=== PATIENT | male | born 1945 | race Caucasian/White ===

== ENCOUNTER 2023-02-18 10:35 | Outpatient (CLI) | payer MEDICARE, BC, SELFPAY ==
--- NOTE | ~2023-02-18 | CT_ITS ---
EXAMINATION: CT BRAIN W/O DATE: 02/18/2023 11:17 INDICATION: TECHNIQUE: Computed tomography (CT) of the head and sinuses was performed without and with 100 cc Omn ipaque 350 intravenous contrast. The dose-length product was 1286.33 mGy-cm. Automated exposure contr ol and iterative reconstruction technique were employed. COMPARISON: No prior studies for comparison. FINDINGS: Generalized atrophy. There are scattered moderate periventricular and subcortical white mat ter changes, most likely related to small vessel ischemic disease (microangiopathy). No abnormal cont rast enhancement. No ventriculomegaly or midline shift. Midline sagittal images demonstrate a normal corpus callosum, c raniovertebral junction and sella turcica. Basilar cisterns are patent. There is a small mucous retention cyst of the right maxillary sinus. Leftward nasal septal deviation. No significant mucosal thickening or air-fluid level. No mucoperiosteal reaction. Mastoids are pneum atized. Ostiomeatal units are patent. Mild hypertrophy of the right inferior turbinate. IMPRESSION: 1. No acute intracranial abnormality. 2: Small mucous retention cyst right maxillary sinus. 3: Chronic age-related findings. Reviewed, dictated and finalized at location []
[2023-02-18 11:06] LABS: Estimated Glomerular Filt Rate 37
== END 2023-02-18 10:36 | disposition home or self-care (01) ==
PROVIDERS: PCP Internal Medicine; Visit Provider Otolaryngology
DX: H90.3 Sensorineural hearing loss, bilateral (principal); H93.19 Tinnitus, unspecified ear; Q01.9 Encephalocele, unspecified; R43.9 Unspecified disturbances of smell and taste; J34.3 Hypertrophy of nasal turbinates
CPT/HCPCS: 70470; 70486

== ENCOUNTER 2023-03-02 08:58 | Outpatient (CLI) | payer MEDICARE, BC, SELFPAY | END 2023-03-02 08:59 | disposition home or self-care (01) | LOC: ANHBWCAUD 09:01 | PROVIDERS: PCP Internal Medicine; Visit Provider Otolaryngology | DX: R43.8 Other disturbances of smell and taste (principal); Q01.9 Encephalocele, unspecified; H93.19 Tinnitus, unspecified ear; H90.3 Sensorineural hearing loss, bilateral | CPT/HCPCS: 92557; 92567 ==

== ENCOUNTER 2025-03-17 13:18 | Emergency (ER) | payer MEDICARE, BC, SELFPAY ==
--- OUTSIDE RECORDS SUMMARY | 2025-03-17 13:20 | XMS_ITS | Clinical Summary ---
Author Organization [facility] Facility Address [address] [place] [id number] Care Team Providers Care Company Accountant Name Role Phone Nitesh Jules MD Primary Care Provider [phone] Allergies No known active allergies Medications Umeclidinium-Zulema anterol (Anoro Ellipta) 62.5-25 MCG/ACT aerosol powder INHALE 1 PUFF EVERY DAY 3 Active sertraline (ZOLOFT) 25 MG tablet Take 50 mg by mouth 1 (one) time each day 4 Active memantine (NAMENDA) 10 MG tablet Take 1 tablet by mouth in the morning and 1 tablet in the evening. 3 Active meclizine (ANTIVERT) 25 MG tablet Take 25 mg by mouth 3 (three) times a day if needed for dizziness 4 Active Magnesium 100 MG tablet Take 500 mg by mouth 1 (one) time each day Active lovastatin (MEVACOR) 20 MG tablet Take 20 mg by mouth 1 (one) time each day 3 Active Lecanemab-irmb (Leqembi) 200 MG/2ML solution 1 Dose every 14 (fourteen) days 3 Active Donepezil HCl 10 MG/DAY patch weekly Active Cobalamin Combinations (B-12) 100-5000 MCG sublingual tablet Take 1 tablet by mouth 1 (one) time each day Active tamsulosin (FLOMAX) 0.4 MG 24 hr capsule TAKE 1 CAPSULE BY MOUTH 1 TIME EACH DAY. 90 capsule 1 4 Active Additional Information Patient not taking.Reported on 10/29/2024 finasteride (PROSCAR) 5 MG tablet Take 5 mg by mouth in the morning. 4 07/24/20 25 Active hydrOXYzine (ATARAX) 25 MG tablet Take 25 mg by mouth if needed 5 Active fludrocortisone 0.1 MG tablet Take 0.1 mg by mouth 1 (one) time each day Active Active Problems Problem Noted Date Diagnosed Date Mixed hyperlipidemia 11/18/2023 Stage 3a chronic kidney disease 09/13/2023 Panlobular emphysema 01/19/2023 Allergic rhinitis due to pollen 12/18/2021 Impaired cognition 11/28/2020 Diabetic peripheral neuropathy 05/30/2020 Type 2 diabetes mellitus without complication Essential hypertension 08/29/2017 Encounters Date Type Department Care Team Description 03/04/2025 Orders Only [facility], [address] [address] [place] Essential hypertension (Primary Dx) from Last 3 Months Immunizations Immunization Administration Dates Next Due DTaP 05/09/2013 Influenza Split High Dose Pr eservative Free IM 05/22/2022,05/20/2017,05/26/2016,05/15 Influenza Vaccine, Quadrival ent, Adjuvanted 06/13/2023 Moderna SARS-COV-2 06/19/2021,11/11/2020, 021 Pneumococcal Conjugate 13-Valent 05/16/2015 Pneumococcal Polysaccharide 05/17/2014 Shingrix 06/29/2018,04/24/2018 Zoster 05/28/2011 Family History Medical History Relation Comments Dementia Father Relation Status Comments Father Mother Social History Tobacco Use Types Packs/Day Years Used Date Smoking Tobacco: Former Cigarettes Smokeless Tobacco: Never Tobacco Cessation:Counseling Given: Not Answered Alcohol Use Standard Drinks/Week Comments Not Currently 0 (1 standard drink = 0.6 oz pur e alcohol) Sex and Gender Information Value Date Recorded Sex Assigned at Not on file Legal Sex Male 10:14 AM EST Gender Identity Not on file Sexual Orientation Not on file Last Filed Vital Signs Vital Sign Reading Time Taken Comments Blood Pressure 132/70 10/29/2024 1:38 PM PHYSICAL THERAPY COORDINATOR Pulse 63 10/29/2024 1:38 PM PHYSICAL THERAPY COORDINATOR Temperature 36.7 C (98 F) 10/29/2024 1:38 PM PHYSICAL THERAPY COORDINATOR Respiratory Rate 16 10/29/2024 1:38 PM PHYSICAL THERAPY COORDINATOR Oxygen Saturation 98% 10/29/2024 1:38 PM PHYSICAL THERAPY COORDINATOR Inhaled Oxygen Concentration - - Weight 103 kg (226 lb) 10/29/2024 1:38 PM PHYSICAL THERAPY COORDINATOR Height 188 cm (6' 2) 04/23/2024 2:01 PM CDT Body Mass Index 29.02 04/23/2024 2:01 PM CDT Plan of Treatment Upcoming Encounters Date Type Department Care Team (Late st Contact Info) Description 05/01/2025 1:15 PM CDT Office Visit [facility], [facility] [address] [facility] [address] [place] [address] August Gant MD 2 [facility] [address] [place] [address] Health Maintenance Due Date Last Done Comments Diabetes: Ophthalmology Exam 10/07/2023 Diabetes: Pedal Pulse Checked 10/07/2023 Diabetes: Sensory Foot Exam 10/07/2023 Diabetes: Visual Foot Exam 10/07/2023 Diabetes: Hemoglobin A1C 12/12/2023 024, 09/12/2023, 03/08/2023, Additional history exists Influenza Vaccine (#1) 2025 4, 06/13/2023, 05/22/2022, Additional history exists Pneumococcal Vaccine: 50+ Years Completed 05/16/2015, 05/17/2014, 04/29/2014 Hepatitis B Vaccine Aged Out No longe r eligible based on patient's age to complete this topic Procedures Procedure Name Priority Date/Time Associated Diagnosis Comments EXT RESULT ENTRY Routine 09/12/2023 from Last 3 Months or Most Recently Relevant to Health Maintenance Results * (ABNORMAL) EXT RESULT ENTRY (09/12/2023) Sodium 139 137 - 147 Potassium 4.4 3.4 - 5.5 Chloride 105.0 99.0 - 108.0 Carbon Dioxide 28 mmol/L Anion Gap 10 <=30 MMOL/L Glucose 121 60 - 200 BUN 22(A) 4 - 21 mg/dL Creatinine 1.64(A) 0.60 - 1.30 mg/dL Total Protein 6.3(A) 6.4 - 8.2 G/DL BUN/Creatinine Ratio 13 Albumin 3.8 3.5 - 5.0 g/dL Calcium 8.9 8.7 - 10.7 mg/dL eGFR CKD-EPI CR 2020 42 mL/min/1. 73m*2 Total Bilirubin 0.6 MG/DL ALT (SGPT) 17 U/L AST (SGOT) 16 U/L Alkaline Phosphatase 72 U/L Hemoglobin A1C 5.6 4.0 - 6.0 Triglycerides 192 Cholesterol, Total 165 HDL 35 mg/dL VLDL Cholesterol [place] 38 LDL-Calculated 92 Chol/HDL Ratio (External Entry) 4.7 Non HDL Cholesterol 130 Hep C Antibody w/reflex to Quant (External Lab Entry) 0.09 09/12/2023 Historical Provider LAB BLOOD ORDERABLES Salud mittal Result from Last 3 Months or Most Recently Relevant to Health Maintenance Insurance Medicare [facility] Care Teams Company Accountant Relationship Specialty Start Date End Date Nitesh Jules [place] [address] [place] [address] PCP - General Family Medicine 10/29/24
--- OUTSIDE RECORDS SUMMARY | 2025-03-17 13:20 | XMS_ITS | Encounter Summary ---
Author Organization [facility] Address [address] [place] [address] Phone Care Team Providers Care Concrete Grinder Operator Name Role Phone Alo Carrasquillo MD Primary Care Provider [phone] Jama Tinajero MD Unavailable [phone] Ermias Greene MD Unavailable [phone] August Gant MD Unavailable [phone] Nitesh Jules MD Primary Care Provider [phone] Reason for Visit * Reason Comments Medication Refill Encounter Details Date Type Department Care Team (Late st Contact Info) Description 05/17/2021 Refill [facility] - Primary Care - [place] [address] [place] [address] Alo Carrasquillo MD [address] [place], [place] [id number] Medication Refill Social History Tobacco Use Types Packs/Day Years Used Date Smoking Tobacco: Former Cigarettes 2 20 Smokeless Tobacco: Never Alcohol Use Standard Drinks/Week Comments Yes 0 (1 standard drink = 0.6 oz pur e alcohol) 2 drinks per week PHQ-2 Answer Date Recorded Total Score - Questions 1-9 0 08/0 11/2020 Sexually Active Control Partners Comments Yes Female Sex and Gender Information Value Date Recorded Sex Assigned at Not on file Legal Sex Male 7:47 PM CDT Gender Identity Not on file Sexual Orientation Not on file documented as of this encounter Plan of Treatment Upcoming Encounters Date Type Department Care Team (Late st Contact Info) Description 03/29/2025 1:30 PM CDT Clinical Support [facility] Oncology [facility] [address] [place] [address] Esdras Davila MD [address] [place] [address] Jama Tinajero MD [address] [place] [address] 04/01/2025 1:00 PM CDT Office Visit [facility] - Neurology [facility] [address] [place] [address] Jama Tinajero MD [address] [place] [address] 04/12/2025 1:30 PM CDT Clinical Support [facility]cology [facility] [address] [place] [address] Discharge Disposition: Discharged to home or Selfcare 04/26/2025 1:30 PM CDT Clinical Support [facility] [address] [place] [phone] Discharge Disposition: Discharged to home or Selfcare 05/10/2025 1:00 PM CDT Clinical Support [facility] [address] [place] [phone] Discharge Disposition: Discharged to home or Selfcare documented as of this encounter Visit Diagnoses Diagnosis Mild cognitive impairment Mild cognitive impairment, so stated documented in this encounter Additional Health Concerns Assessment Noted Time PHQ-9 Depression Total Score: 0 04/01/20 21 1:00 PM CDT documented as of this encounter Care Teams Concrete Grinder Operator Relationship Specialty Start Date End Date Alo Carrasquillo MD [address] [place] [address] PCP - General Internal Medicine 05/20/15 10/30/24 Nitesh Jules MD [address] [place] [address] PCP - General Internal Medicine 11/02/24 Jama Tinajero MD [address] [place] [address] Consulting Physician Neurology 11/28/20 Ermias Greene MD [address] [address] Consulting Physician Otolaryngology 03/08/23 August Gant MD [address] [place] [address] Consulting Physician Nephrology 04/12/24 documented as of this encounter
--- OUTSIDE RECORDS SUMMARY | 2025-03-17 13:20 | XMS_ITS | Encounter Summary ---
Author Organization [facility] Address [address] [place] [address] Phone Care Team Providers Care Legal Examiner Name Role Phone Alo Carrasquillo MD Primary Care Provider [phone] Jama Tinajero MD Unavailable [phone] Ermias Greene MD Unavailable [phone] August Gant MD Unavailable Nitesh Jules MD Primary Care Provider [phone] Reason for Visit * Reason Comments Medication Refill Encounter Details Date Type Department Care Team (Late st Contact Info) Description 03/01/2022 Refill [facility] - Primary Care - [place] [address] [place] [address] Alo Carrasquillo MD [address] [place], [place] [id number] Medication Refill Social History Tobacco Use Types Packs/Day Years Used Date Smoking Tobacco: Former Cigarettes 2 20 Smokeless Tobacco: Never Alcohol Use Standard Drinks/Week Comments Yes 0 (1 standard drink = 0.6 oz pur e alcohol) 2 drinks per week PHQ-2 Answer Date Recorded Total Score - Questions 1-9 0 11/28 Education Answer Date Recorded What is the highest level of school you have completed or the highest degree you have received? Associate degree: occupational, technical, or vocational program 06/19/2021 Sexually Active Control Partners Comments Yes Female Sex and Gender Information Value Date Recorded Sex Assigned at Not on file Legal Sex Male 7:47 PM CDT Gender Identity Not on file Sexual Orientation Not on file COVID-19 Exposure Response Date Recorded In the last 10 days, have yo u been in contact with someone who was confirmed or suspected to have Coronavirus/COVID-19? No / Unsure 02/01/2022 11:06 AM CDT documented as of this encounter Plan of Treatment Upcoming Encounters Date Type Department Care Team (Late st Contact Info) Description 03/29/2025 1:30 PM CDT Clinical Support [facility] On[facility] Services [address] [place] [phone] Esdras Davila MD [address] [place] [address] Jama Tinajero MD [address] [place] [address] 04/01/2025 1:00 PM CDT Office Visit [facility] - Neurology [facility] [address] [place] [address] Jama Tinajero MD [address] [place] [address] 04/12/2025 1:30 PM CDT Clinical Support [facility] [address] [place] [phone] Discharge Disposition: Discharged to home or Selfcare 04/26/2025 1:30 PM CDT Clinical Support [facility] [address] [place] [address] Discharge Disposition: Discharged to home or Selfcare 05/10/2025 1:00 PM CDT Clinical Support [facility] Services [address] [place] [phone] Discharge Disposition: Discharged to home or Selfcare documented as of this encounter Visit Diagnoses Not on filedocumented in this encounter Additional Health Concerns Assessment Noted Time PHQ-9 Depression Total Score: 0 04/01/20 1:00 PM CDT documented as of this encounter Care Teams Legal Examiner Relationship Specialty Start Date End Date Alo Carrasquillo MD [address] [place] [address] PCP - General Internal Medicine 05/20/15 10/30/24 Nitesh Jules MD [address] [place] [address] PCP - General Internal Medicine 11/02/24 Jama Tinajero MD [address] [place] [address] Consulting Physician Neurology 11/28/20 Ermias Greene MD [address] [facility] [address] [place] [address] Consulting Physician Otolaryngology 03/08/23 August Gant MD 2 [facility], [address] [address] Consulting Physician Nephrology 04/12/24 documented as of this encounter
--- OUTSIDE RECORDS SUMMARY | 2025-03-17 13:20 | XMS_ITS | Clinical Summary ---
Author Organization [facility] CALL [facility] ENTER Address [address] [place] [address] Phone Care Team Providers Care Director Of Sales Name Role Phone Jama Tinajero MD Unavailable [phone] Ermias Greene MD Unavailable [phone] August Gant MD Unavailable [phone] Nitesh Jules MD Primary Care Provider [phone] Allergies No known active allergies Medications Cyanocobalamin (VITAMIN B-12 PO) Take by mouth. Active MAGNESIUM PO Take by mouth. Ac tive lovastatin (MEVACOR) 20 MG TabletIndications :Mixed hyperlipidemia TAKE 1 TABLET BY MOUTH EVERY DAY 90 Tablet 2 024 Active Chelated Magnesium 100 MG Tablet Take 100 mg by mouth. Active memantine (NAMENDA) 10 MG TabletIndications :Mild cognitive impairment TAKE 1 TABLET BY MOUTH TWICE A DAY 180 Tablet 5 024 Active QUEtiapine (SEROquel) 25 MG TabletIndications :Alzheimer's disease,Anxiety Take 1 Tablet by mouth daily as needed (agitation). 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 10 mL 6 025 Active hydrOXYzine (ATARAX) 25 MG Tablet TAKE 1 TABLET BY MOUTH EVERY 6 HOURS NEEDED FOR ANXIETY 15 Tablet 025 Active hydrOXYzine (ATARAX) 25 MG Tablet Take 1 Tablet by mouth every 6 hours as needed for Anxiety. 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 03/08/2023 Panlobular emphysema 01/19/2023 Seasonal allergic rhinitis due to pollen 022 Mild cognitive impairment 11/28/2020 Diabetic peripheral neuropathy 05/30/2020 Type 2 diabetes mellitus wit hout complication, without long-term current use of insulin 05/30/2019 Hypertension, essential 08/29/2017 Mixed hyperlipidemia Resolved Problems Problem Noted Date Diagnosed Date Resolved Date Screen for colon cancer 05/20/201704/30 SOB (shortness of breath) 06/09/2016 Non morbid obesity due to excess calories 06/09/2016 05/19/2017 Encounters Date Type Department Care Team Description 03/15/2025 1:30 PM CDT Clinical Support [facility] Oncology Services [address] [place] [phone] Jama Tinajero MD Alzheimer's disease (Primary Dx); Mild cognitive impairment; 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 behavioral disturbance, psychotic disturbance, mood disturbance, or anxiety (HCC) Discharge Disposition: Discharged to home or Selfcare 03/15/2025 Travel 03/09/2025 Refill [facility] Neurology [facility] [address] [place] [address] Jama Tinajero MD Medication Refill 02/28/2025 2:00 PM CDT Clinical Support [facility] Oncology Services [address] [place] [address] Esdras Davila MD Sherwood, Karna D, MD Mild cognitive impairment Discharge Disposition: Discharged to home or Selfcare 02/28/2025 Travel 02/05/2025 1:00 PM CDT Clinical Support [facility] Oncology Services [address] [place] [phone] Jama Tinajero MD Alzheimer's disease (Primary Dx); Mild cognitive impairment Discharge Disposition: Discharged to home or Selfcare 02/05/2025 Travel 02/05/2025 Telephone [facility] Neurology [facility] [address] [place] [address] Jama Tinajero MD 01/18/2025 1:30 PM CDT Clinical Support [facility] Oncology Services [address] [place] [phone] Jama Tinajero MD Mild cognitive impairment Discharge Disposition: Discharged to home or Selfcare 01/18/2025 Travel 12/28/2024 1:00 PM CDT Clinical Support [facility] Oncology Services [address] [place] [phone] Marah Guevara PAC Sandhu, Manpreet Kaur, MD Mild cognitive impairment Discharge Disposition: Discharged to home or Selfcare 12/28/2024 Travel 12/21/2024 Refill [facility] [place] [address] [place] [phone] Jama Tinajero MD Medication Refill 12/21/2024 Refill [facility] - Primary [facility] - [address] [phone] Alo Carrasquillo MD Medication Refill from Last 3 Months Immunizations Immunization Administration Dates Next Due Covid-19, Mrna, Lnp-s, Bival ent, Moderna, 50 Mcg or 25 mcg dose 07/12/2022 Covid-19, Mrna, Lnp-s, PF, 1 00 mcg/0.5 mL Dose (Moderna) 06/19/2021,11/11/2020,10/01/2020 DTAP VACCINE 05/09/2013 Influenza Vaccine greater than 3 yrs 03/2020,06/04/2019,05/23/2018,2013 Influenza, High-dose, Quadrivalent 05/21/2022, Influenza, Quadrivalent, Adjuvanted 06/13/2023 Influenza, high-dose, trivalent, PF 04/30,05/20/2017,05/26/2016,2014 Pneumococcal Vaccine - 13 Valent 05/16/2015 Pneumococcal Vaccine Adult - 23 Valent 05/17/2014 RSV, Recombinant, Protein Holder bunit Rsvpref, Adjuvant Recon (Arexvy) 04/26/2024 Zoster Vaccine Recombinant 06/29/2018,04/24/2018 Zoster Vaccine, live 05/28/2011 Family History Medical History Relation Name Comments No Known Problems Brother Alzheimer's Disease Father Stroke Father ?? No Known Problems Mother No Known Problems Sister Relation Name Status Comments Brother Alive Father Mother Sister Alive Social History Tobacco Use Types Packs/Day Years Used Date Smoking Tobacco: Former Cigarettes 2 43 0 1958 - 1977 Smokeless Tobacco: Never Tobacco Cessation:Counseling Given: Not Answered Alcohol Use Standard Drinks/Week Comments Not Currently 2 (1 standard drink = 0.6 oz pur e alcohol) 2 drinks per week [facility] Utilities Answer Date Recorded In the past 12 months has [employer], gas, oil, or water company threatened to shut off services in your home? No 04/12/2024 Social Connection and Isolation Panel Answer Date Recorded In a typical week, how many times do you talk on the phone with family, friends, or neighbors? Patient declined 04/12/2024 How often do you get togethe r with friends or relatives? Patient declined 04/12/2024 How often do you attend judaism or mandaen serv ices? Patient declined 04/12/2024 Do you belong to any clubs o r organizations such as judaism groups, unions, fraternal or athletic groups, or school groups? Patient declined 04/12/2024 How often do you attend meet ings of the clubs or organizations you belong to? Patient declined 04/12/2024 Are you , , di vorced, , never , or living with a partner? 04/12/2024 AUDIT-C Answer Date Recorded Q1: How often do you have a drink containing alc ohol? Monthly or less 04/12/2024 Q2: How many drinks containi ng alcohol do you have on a typical day when you are drinking? Patient declined 04/12/2024 Q3: How often do you have si x or more drinks on one occasion? Never 04/12/2024 Overall Financial Resource Strain (CARDIA) Answe r Date Recorded How hard is it for you to pa y for the very basics like food, housing, medical care, and heating? Not hard at all 04/12/2024 PHQ-2 Answer Date Recorded Total Score - Questions 1-9 0 08/29 [facility] - Occupational Stress Questionnaire Answer Date Recorded Do you feel stress - tense, restless, nervous, or anxious, or unable to sleep at night because your mind is troubled all the time - these days? Patient declined 04/12/2024 Exercise Vital Sign Answer Date Recorde d On average, how many days pe r week do you engage in moderate to strenuous exercise (like a brisk walk)? Patient declined On average, how many minutes do you engage in exercise at this level? Patient declined 04/12/2024 Hunger Vital Sign Answer Date Recorded Within the past 12 months, y ou worried that your food would run out before you got the money to buy more. Never true 04/12/20 24 Within the past 12 months, t he food you bought just didn't last and you didn't have money to get more. Never true 04/12/2024 PRAPARE - Transportation Answer Date Re corded In the past 12 months, has l ack of transportation kept you from medical appointments or from getting medications? No 03/29 In the past 12 months, has l ack of transportation kept you from meetings, work, or from getting things needed for daily living? No 04/12/2024 Housing Stability Vital Sign Answer Jose e Recorded In the last 12 months, was t here a time when you were not able to pay the mortgage or rent on time? No 09/11/2023 Number of Places Lived in the Last Year Not on f ile 09/11/2023 In the last 12 months, was t here a time when you did not have a steady place to sleep or slept in a nursing home (including now)? Yes 09/11/2023 Housing Stability Vital Sign Answer Jose e Recorded In the last 12 months, was t here a time when you were not able to pay the mortgage or rent on time? No 04/12/2024 Number of Times Moved in the Last Year Not on fi le 04/12/2024 At any time in the past 12 [facility], were you homeless or living in a nursing home (including now)? No 04/12/2024 Education Answer Date Recorded What is the highest level of school you have completed or the highest degree you have received? Associate degree: occupational, technical, or vocational program 06/19/2021 Sexually Active Control Partners Comments Not Currently None Female Sex and Gender Information Value Date Recorded Sex Assigned at Not on file Legal Sex Male 7:47 PM CDT Gender Identity Not on file Sexual Orientation Not on file Last Filed Vital Signs Vital Sign Reading Time Taken Comments Blood Pressure 123/64 03/15/2025 1:33 PM CDT Pulse 69 03/15/2025 1:33 PM CDT Temperature 36.5 C (97.7 F) 03/15/2025 1:33 PM CDT Respiratory Rate 18 03/15/2025 1:33 PM CDT Oxygen Saturation 97% 03/15/2025 1:33 PM CDT Inhaled Oxygen Concentration - - Weight 103.5 kg (228 lb 3.2 oz) 03/15/2025 1:33 PM CDT Height 188 cm (6' 2) 10/05/2024 1:49 PM SALES AND PRODUCTION MANAGER Body Mass Index 29.3 10/05/2024 1:49 PM SALES AND PRODUCTION MANAGER Plan of Treatment Upcoming Encounters Date Type Department Care Team (Late st Contact Info) Description 03/29/2025 1:30 PM CDT Clinical Support [facility] Oncology Services [address] [place] [address] Esdras Davila MD [address] [place] [address] Jama Tinajero MD [address] [place] [address] 04/01/2025 1:00 PM CDT Office Visit [facility] [address] [place] [address] Jama Tinajero MD [address] [place] [address] 04/12/2025 1:30 PM CDT Clinical Support [facility] Oncology Services [address] [place] [phone] Discharge Disposition: Discharged to home or Selfcare 04/26/2025 1:30 PM CDT Clinical Support [facility] Oncology Services [address] [place] [phone] Discharge Disposition: Discharged to home or Selfcare 05/10/2025 1:00 PM CDT Clinical Support [facility] Oncology Services [address] [place] [phone] Discharge Disposition: Discharged to home or Selfcare Health Maintenance Due Date Last Done Comments Diabetes: Foot Exam 1945 Diabetes: Hemoglobin A1c 03/12/2024 024, 03/08/2023, 06/28/2022, Additional history exists Diabetes: Nephropathy Screening 04/05/2025 04/05/2024, 02/27/2024, 09/12/2023, Additional history exists Diabetes: Eye Exam 04/11/2025 04/11/2024, 0 04/03/2024, 03/14/2024, Additional history exists Influenza Immunization (#1) 2025 11/0 08/2023, 06/13/2023, 05/22/2022, Additional history exists Pneumococcal Immunization (50+ years) Completed 05/16/2015, 05/17/2014, 04/29/2014 Pneumococcal Immunization Combined Discontinued 05/16/2015, 05/17/2014, 04/29/2014 Zoster Immunization Completed 06/29/2018, 04/24/2018, 05/28/2011, Additional history exists Hepatitis C Virus (HCV) Screening Completed 09/12/2023 Respiratory Syncytial Virus (RSV) Immunization (Adult) Completed 04/26/2024 SARS-COV-2 Immunization Completed 06/29/20 24, 04/26/2024, 06/13/2023, Additional history exists Hepatitis B Immunization Aged Out No longer eligible based on patient's age to complete this topic Human Papillomavirus (HPV) Immunization Aged Out No longer eligible based on patient's age to complete this topic Meningococcal Immunization (ACWY) Aged Out No longer eligible based on patient's age to complete this topic Rotavirus Immunization Aged Out No lo nger eligible based on patient's age to complete this topic Procedures Procedure Name Priority Date/Time Associated Diagnosis Comments DILATED EYE EXAM 04/11/2024 1 2:00 AM CDT CMP (COMPREHENSIVE METABOLIC PANEL) STAT 04/05/2024 7:17 PM CDT HEMOGLOBIN A1C W/ ESTIMATED GLUCOSE Routine 09/12/2023 11:44 AM SALES AND PRODUCTION MANAGER Type 2 diabetes mellitus without complication, without long-term current use of insulin (HCC) HEPATITIS C ANTIBODY Routine 09/12/2023 11:44 AM SALES AND PRODUCTION MANAGER Encounter for hepatitis C screening test for low risk patient from Last 3 Months or Most Recently Relevant to Health Maintenance Results * DILATED EYE EXAM (04/11/2024 12:00 AM CDT) 04/11/2024 us Provider Scan PROCEDURE/MINOR SURGICAL ORDERAB LES Final Result SCAN * (ABNORMAL) CMP (Comprehensive Metabolic Panel) (04/05/2024 7:17 PM CDT) SODIUM 142 136 - 145 mmol/L 04/05/2024 7:48 PM CDT [facility] POTASSIUM 4.3 3.5 - 5.1 mmol/L 04/05/2024 7:48 PM CDT [facility] CHLORIDE 106 98 - 107 mmol/L 04/05/2024 7:48 PM CDT [facility] CO2, VENOUS 25 22 - 30 mmol/L 04/05/2024 7:48 PM CDT [facility] ANION GAP 15.3 <18.0 mmol/L 04/05/2024 7:48 PM CDT [facility] GLUCOSE 87 70 - 99 mg/dL 04/05/2024 7:48 PM CDT [facility] BUN 19 8 - 26 mg/dL 04/05/2024 7:48 PM CDT [facility] CREATININE, BLOOD 1.70(H) 0.70 - 1.30 mg/dL 04/05/2024 7:48 PM CDT [facility] BUN/CREATININE RATIO 11(L) 12 - 20 ratio 04/05/2024 7:48 PM CDT [facility] TOTAL PROTEIN 7.0 6.3 - 8.2 g/dL 04/05/2024 7:48 PM CDT [facility] ALBUMIN 4.4 3.5 - 5.0 g/dL 04/05/2024 7:48 PM CDT [facility] A/G RATIO 1.7 1.0 - 2.2 04/05/2024 7:48 PM CDT [facility] CALCIUM 9.3 8.7 - 10.5 mg/dL 04/05/2024 7:48 PM CDT [facility] T BILI 0.5 0.2 - 1.2 mg/dL 04/05/2024 7:48 PM CDT [facility] SGOT (AST) 16 5 - 34 U/L 04/05/2024 7:48 PM CDT [facility] SGPT (ALT) 11 0 - 55 U/L 04/05/2024 7:48 PM CDT [facility] ALKALINE PHOSPHATASE 84 40 - 150 U/L 04/05/2024 7:48 PM CDT [facility] GFR, ESTIMATED 40(L) >=60 04/05/2024 7:48 PM CDT [facility] Comment: Creatinine Clearance is the preferred criteria for selecting drug dose adjustments in renally impaired patients. The GFR is provided as additional pertinent clinical information. GFR is reported in mL/min/1.73 sq m. Calculation based on the Chronic Kidney Disease Epidemiology Collaboration (CKD- EPI) equation refit without adjustment for race. GFR, EST. 47(L) >=60 024 7:48 PM CDT [facility] GFR, EST. NONAFRICAN 39(L) >=60 04/05/2024 7:48 PM CDT [facility] Blood Venipuncture / Unknown 04/05/2024 7:17 PM CDT 04/05/2024 7:25 PM CDT us Harpreet Colbert MD CHEMISTRY ORDERABLES Salud l Result [facility] [address] [place] [address] * HEMOGLOBIN A1C W/ ESTIMATED GLUCOSE (09/12/2023 11:44 AM SALES AND PRODUCTION MANAGER) HGB-A1C 5.6 4.0 - 6.0 % 09/12/2023 3:29 PM SALES AND PRODUCTION MANAGER [facility] Est Average Glucose 114.0 mg/dL 09/12/2023 3:29 PM SALES AND PRODUCTION MANAGER [facility] Blood Venipuncture / Unknown 09/12/2023 11:44 AM SALES AND PRODUCTION MANAGER 09/12/2023 11:44 AM SALES AND PRODUCTION MANAGER Narrative [facility] - 09/12/2023 3:29 PM SALES AND PRODUCTION MANAGER HEMOGLOBIN A1C: DIABETIC PATIENTS: WELL-CONTROLLED: 6.2 - 7.0 INTERMEDIATE WELL-CONTROLLED: 7.0 - 9.0 POORLY-CONTROLLED: >9.0 us Alo Carrasquillo MD CHEMISTRY ORDERABLES Salud l Result [facility] [address] [place] [address] * HEPATITIS C ANTIBODY (09/12/2023 11:44 AM SALES AND PRODUCTION MANAGER) hepatitis C antibody 0.09 <1 S/CO [facility] ARCH [id number] 09/12/2023 11:26 PM SALES AND PRODUCTION MANAGER [facility] Comment: Signal/Cutoff ratio < 0.79 is Nondetected Signal/Cutoff ratio 0.80-0.99 is Grayzone Signal/Cutoff ratio > 0.99 is Detected Supplemental assays are recommended if signal/cutoff ratio is >/=1.00. Signal/cutoff ratio result >/= 5.00 is 97% predictive of positivity for recombinant immunoblot assay (RIBA) and will be reported to the [place] Department of Public Health as required. Blood Venipuncture / Unknown 09/12/2023 11:44 AM SALES AND PRODUCTION MANAGER 09/12/2023 11:44 AM SALES AND PRODUCTION MANAGER us Alo Carrasquillo MD CHEMISTRY ORDERABLES Salud l Result [facility] [address] [place] [address], from Last 3 Months or Most Recently Relevant to Health Maintenance Insurance MEDICARE [facility] Care Teams Director Of Sales Relationship Specialty Start Date End Date Nitesh Jules MD [address] [place] [id number] PCP - General Internal Medicine 11/02/24 Jama Tinajero MD [address] [place] [address] Consulting Physician Neurology 11/28/20 Ermias Greene MD [address] [address] Consulting Physician Otolaryngology 03/08/23 August Gant MD [address] [place] [id number] Consulting Physician Nephrology 04/12/24
--- OUTSIDE RECORDS SUMMARY | 2025-03-17 13:20 | XMS_ITS | Encounter Summary ---
Author Organization [facility] Address [address] [place] [address] Phone Care Team Providers Care Photogrammetry Airplane Pilot Name Role Phone Alo Carrasquillo MD Primary Care Provider [phone] Jama Tinajero MD Unavailable [phone] Ermias Greene MD Unavailable [phone] August Gant MD Unavailable [phone] Nitesh Jules MD Primary Care Provider [phone] Encounter Details Date Type Department Care Team (Late st Contact Info) Description 06/23/2023 Transcribe Orders [facility] Diagnostic Radiology [address] [place] [address] Jama Tinajero MD [address] [place] [address] Mild cognitive impairment (Primary Dx); Other fdc (current) drug therapy; Pre-operative laboratory examination; Encounter for therapeutic drug monitoring Social History Tobacco Use Types Packs/Day Years Used Date Smoking Tobacco: Former Cigarettes 2 20 Smokeless Tobacco: Never Alcohol Use Standard Drinks/Week Comments Yes 0 (1 standard drink = 0.6 oz pur e alcohol) 2 drinks per week PHQ-2 Answer Date Recorded Total Score - Questions 1-9 0 05/1 02/2023 Education Answer Date Recorded What is the [...] suspected to have Coronavirus/COVID-19? No / Unsure 06/02/2023 1:00 PM CDT documented as of this encounter Plan of Treatment Upcoming Encounters Date Type Department Care Team (Late st Contact Info) Description 03/29/2025 1:30 PM CDT Clinical Support [facility] Oncology Services [address] [place] [phone] Esdras Davila MD [address] [place] [address] Jama Tinajero MD [address] [place] [address] 04/01/2025 1:00 PM CDT Office Visit [facility] Medical [facility] [address] [place] [address] Jama Tinajero MD [address] [place] [address] 04/12/2025 1:30 PM CDT Clinical Support [facility] Oncology Services [address] [place] [phone] Discharge Disposition: Discharged to home or Selfcare 04/26/2025 1:30 PM CDT Clinical Support [facility] Oncology Services [address] [place] [address] Discharge Disposition: Discharged to home or Selfcare 05/10/2025 1:00 PM CDT Clinical Support [facility] Oncology Services [address] [place] [address] Discharge Disposition: Discharged to home or Selfcare documented as of this encounter Results * APTT (PTT) (06/28/2023 1:09 PM CDT) PTT 32 24 - 36 sec 06/28/2023 2:09 PM CDT [facility] Blood Venipuncture / Unknown 06/28/2023 1:09 PM CDT 06/28/2023 1:51 PM CDT Narrative [facility] - 06/28/2023 2:09 PM CDT Therapeutic range for unfractionated heparin at 0.3-0.7 U/mL is an aPTT value in the range of 71-100 seconds. Critical value for the PTT test is >= 122 seconds. us Jama Tinajero MD HEMATOLOGY ORDERABLES Final Result [facility] [address] [place] [address] * PROTIME (PT) (PROTHROMBIN TIME) (06/28/2023 1:09 PM CDT) PROTIME-PATIENT 13.0 11.6 - 14.8 sec 06/28/2023 2:09 PM CDT [facility] INR 1.0 0.9 - 1.2 06/28/2023 2:09 PM CDT [facility] Comment: Therapeutic Ranges INR = 2.0-3.0: Venous thromb, atrial fib, pul embolism, tissue heart valve, ami. INR = 2.5-3.5: Mechanical heart valve Critical value for INR is >/= 4.5 Blood Venipuncture / Unknown 06/28/2023 1:09 PM CDT 06/28/2023 1:51 PM CDT us Jama Tinajero MD HEMATOLOGY ORDERABLES Final Result [facility] [address] [place] [address] * (ABNORMAL) BASIC METABOLIC PANEL W/ CALCIUM TOTAL (06/28/2023 1:09 PM CDT) SODIUM 142 136 - 145 mmol/L 06/28/2023 2:18 PM CDT [facility] POTASSIUM 4.2 3.5 - 5.1 mmol/L 06/28/2023 2:18 PM CDT [facility] CHLORIDE 107 98 - 107 mmol/L 06/28/2023 2:18 PM CDT [facility] CO2, VENOUS 27 22 - 30 mmol/L 06/28/2023 2:18 PM CDT [facility] ANION GAP 12.2 <18.0 mmol/L 06/28/2023 2:18 PM CDT [facility] GLUCOSE 158(H) 70 - 99 mg/dL 06/28/2023 2:18 PM CDT [facility] BUN 15 8 - 26 mg/dL 06/28/2023 2:18 PM CDT [facility] CREATININE, BLOOD 1.48(H) 0.70 - 1.30 mg/dL 06/28/2023 2:18 PM CDT [facility] BUN/CREATININE RATIO 10(L) 12 - 20 ratio 06/28/2023 2:18 PM CDT [facility] CALCIUM 8.4(L) 8.7 - 10.5 mg/dL 06/28/2023 2:18 PM CDT [facility] IS THE PATIENT REQUIRED TO BE FASTING? No 06/28/2023 2:18 PM CDT [facility] GFR, ESTIMATED 48(L) >=60 06/28/2023 2:18 PM CDT [facility] Comment: Creatinine Clearance is the preferred criteria for selecting drug dose adjustments in renally impaired patients. The GFR is provided as additional pertinent clinical information. GFR is reported in mL/min/1.73 sq m. Calculation based on the Chronic Kidney Disease Epidemiology Collaboration (CKD- EPI) equation refit without adjustment for race. GFR, EST. 55(L) >=60 023 2:18 PM CDT [facility] GFR, EST. NONAFRICAN 46(L) >=60 06/28/2023 2:18 PM CDT [facility] Blood Venipuncture / Unknown 06/28/2023 1:09 PM CDT 06/28/2023 1:51 PM CDT us Jama Tinajero MD CHEMISTRY ORDERABLES Final R esult [facility] [address] [place] [address] documented in this encounter Visit Diagnoses Diagnosis Mild cognitive impairment- Primary Mild cognitive impairment, so stated Other lobsterman (current) drug therapy Pre-operative laboratory examination Pre-procedural laboratory examination Encounter for therapeutic drug monitoring documented in this encounter Additional Health Concerns Assessment Noted Time PHQ-9 Depression Total Score: 0 01/13/20 23 2:00 PM CDT documented as of this encounter Care Teams Photogrammetry Airplane Pilot Relationship Specialty Start Date End Date Alo Carrasquillo MD [address] [place] [address] PCP - General Internal Medicine 05/20/15 10/30/24 Nitesh Jules MD [address] [place] [address] PCP - General Internal Medicine 11/02/24 Jama Tinajero MD [address] [place] [address] Consulting Physician Neurology 11/28/20 Ermias Greene MD [address] [facility] [address] [place] [address] Consulting Physician Otolaryngology 03/08/23 August Gant MD 2 [facility], [facility] [address] [place] [address] Consulting Physician Nephrology 04/12/24 documented as of this encounter
--- OUTSIDE RECORDS SUMMARY | 2025-03-17 13:20 | XMS_ITS | Encounter Summary ---
Author Organization [facility] Address [address] [place] [address] Phone Care Team Providers Care Phlebotomy Director Name Role Phone Alo Carrasquillo MD Primary Care Provider [phone] Jama Tinajero MD Unavailable [phone] Ermias Greene MD Unavailable [phone] August Gant MD Unavailable [phone] Nitesh Jules MD Primary Care Provider [phone] Reason for Visit * Reason Comments Medication Refill Encounter Details Date Type Department Care Team (Late st Contact Info) Description 03/21/2022 Refill [facility] - Primary Care - [place] [address] [place] [address] Alo Carrasquillo MD [address] [place], [place] [phone] Medication Refill Social History Tobacco Use Types [...] on file documented as of this encounter Miscellaneous Notes * Telephone Encounter - Alo Carrasquillo MD - 03/22/2022 10:51 AM CDT Refill request approved. * Telephone Encounter - Kitty Kenney RN - 03/22/2022 8:07 AM CDT Medication failed the protocol, provider to review and approve the medication order if appropriate. Requested Prescriptions Pending Prescriptions Disp Refills donepezil (ARICEPT) 10 MG Tablet [Pharmacy Med Name: DONEPEZIL HCL 10 MG TABLET] 90 Tablet 1 Sig: TAKE 1 TABLET BY MOUTH EVERY DAY AT NIGHT Antidementia Agents Protocol Failed - 03/21/2022 7:57 AM Failed - Patient has established therapy with Antidementia Agents for at least 6 months Passed - Visit with relevant provider in past 12 months or upcoming 90 days Recent Visits Date Type Provider Dept 12/18/21 Office Visit Alo Carrasquillo MD [facility] 06/19/21 Office Visit Alo Carrasquillo MD [facility] 04/01/21 Office Visit Erlin Sesay PAC [facility] Showing recent visits within past 365 days and meeting all other requirements Future Appointments No visits were found meeting these conditions. Showing future appointments within next 90 days and meeting all other requirements documented in this encounter Plan of Treatment Upcoming Encounters Date Type Department Care Team (Late st Contact Info) Description 03/29/2025 1:30 PM CDT Clinical Support [facility] Oncology Services [address] [place] [phone] Esdras Davila MD [address] [place] [address] Jama Tinajero MD [address] [place] [address] 04/01/2025 1:00 PM CDT Office Visit [facility] #[address] [place] [address] Jama Tinajero MD [address] [place] [address] 04/12/2025 1:30 PM CDT Clinical Support [facility] Oncology Services [address] [place] [address] Discharge Disposition: Discharged to home or Selfcare 04/26/2025 1:30 PM CDT Clinical Support [facility] Oncology Services [address] [place] [phone] Discharge Disposition: Discharged to home or Selfcare 05/10/2025 1:00 PM CDT Clinical Support [facility] Oncology Services [address] [place] [phone] Discharge Disposition: Discharged to home or Selfcare documented as of this encounter Visit Diagnoses Diagnosis Mild cognitive impairment Mild cognitive impairment, so stated documented in this encounter Additional Health Concerns Assessment Noted Time PHQ-9 Depression Total Score: 0 04/01/20 1:00 PM CDT documented as of this encounter Care Teams Phlebotomy Director Relationship Specialty Start Date End Date Alo Carrasquillo MD [address] [place] [address] PCP - General Internal Medicine 05/20/15 10/30/24 Nitesh Jules MD [address] [place] [address] PCP - General Internal Medicine 11/02/24 Jama Tinajero MD [address] [place] [address] Consulting Physician Neurology 11/28/20 Ermias Greene MD [address] [address] Consulting Physician Otolaryngology 03/08/23 August Gant MD [address] [address] Consulting Physician Nephrology 04/12/24 documented as of this encounter
--- OUTSIDE RECORDS SUMMARY | 2025-03-17 13:20 | XMS_ITS | Referral Summary ---
Author Organization [address] Address [address] [place] [address] Care Team Providers Care Cartridge Gauger Name Role Phone Nitesh Jules MD Primary Care Provider [phone] Allergies No known active allergies Medications sertraline (ZOLOFT) 50 mg tabletIndications :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 behavioral disturbance, psychotic disturbance, mood disturbance, or anxiety (HCC) Take 1 tablet (50 mg total) by mouth daily Active donepeziL (ARICEPT) 10 mg tabletIndications :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 behavioral disturbance, psychotic disturbance, mood disturbance, or anxiety (HCC) Take 1 tablet (10 mg total) by mouth nightly Active magnesium gluconate (MAGONATE) 500 mg (27 mg elemental) tabletIndications :hypomagnesemia Acti ve cyanocobalamin (Vitamin B-12) 1,000 mcg sublingual tablet Take 1 tablet (1,000 mcg total) by mouth daily Active finasteride (PROSCAR) 5 mg tabletIndications :Benign prostatic hyperplasia with nocturia Take 1 tablet (5 mg total) by mouth daily 90 tablet 4 4 07/23/20 Active albuterol HFA (PROVENTIL HFA,VENTOLIN HFA,PROAIR HFA) 90 mcg/actuation inhalerIndication s:Moderate persistent asthma without complication Inhale 2 puffs every 6 (six) hours as needed for wheezing 3 each 4 4 07/23/20 25 Active azelastine (ASTELIN) 137 mcg (0.1 %) nasal sprayIndications: Vasomotor Rhinitis Administer 1 spray into each nostril 2 (two) times a day Use in each nostril as directed 30 mL 3 4 Active fludrocortisone 0.1 mg tabletIndications :CKD stage 3b, GFR 30-44 ml/min (HCC),At high risk for falls Take 1 tablet (0.1 mg total) by mouth daily 90 tablet 3 5 09/17/19 26 Active lovastatin (MEVACOR) 20 mg tabletIndications :Dyslipidemia TAKE 1 TABLET BY MOUTH EVERY DAY 90 tablet 3 5 Active hydrOXYzine (ATARAX) 25 mg tablet Take 1 tablet (25 mg total) by mouth as needed 5 Active memantine (NAMENDA) 10 mg tablet Take 1 tablet (10 mg total) by mouth 2 (two) times a day 4 Active inhalational spacing device spacer Use with inhaler; rinse after use 1 each 5 Active fluticasone propion-salmetero L (ADVAIR HFA) 230-21 mcg/actuation inhaler INHALE 2 PUFFS BY MOUTH 2 TIMES A DAY RINSE MOUTH WITH WATER AFTER USE. DO NOT SWALLOW. 12 each 2 5 Active Active Problems Problem Noted Date Diagnosed Date CKD stage 3b, GFR 30-44 ml/min 08/06/2024 Assessment & Plan (11/20/2024 9:20 PM CDT): EGFR stable, well controlled, no changes to bone metabolism panel Continue to avoid nephrotoxic medications; appropriate blood pressure control Assessment & Plan (08/06/2024 2:26 PM PROJECT STRUCTURAL ENGINEER): Stable, EGFR in the 40s with no evidence of disease; continue to monitor and reduce risk through avoiding nephrotoxic medications and ensuring appropriate blood pressure Moderate late onset Alzheime r's dementia without behavioral disturbance, psychotic disturbance, mood disturbance, or anxiety 08/06/2024 Assessment & Plan (11/20/2024 9:20 PM CDT): Stable, no major changes; disease feels level at this time Continue Aricept 10 mg nightly, memantine 10 mg b.i.d.; continue Lequimbi infusions Assessment & Plan (08/06/2024 2:27 PM PROJECT STRUCTURAL ENGINEER): Patient reports poor memory, forgets trips and passed activities; follows with Neurology, on monoclonal antibody treatment No longer driving, manages finances Continue donepezil and memantine Sertraline 50 mg daily Moderate persistent asthma without complication 08/06/2024 Assessment & Plan (11/20/2024 9:22 PM CDT): Stable, continues to get up breath easily Continue Advair 2 puffs b.i.d.; use of spacing device to help ensure appropriate medication delivery Assessment & Plan (08/06/2024 2:27 PM PROJECT STRUCTURAL ENGINEER): Stable, well controlled; occasional episodes of shortness of breath, continue albuterol p.r.n.; if no improvement, may start controller Benign prostatic hyperplasia with nocturia 08/06 Assessment & Plan (11/20/2024 9:22 PM CDT): Nocturia x4; continue finasteride 5 mg daily, given fall risk, would avoid alpha antagonist Assessment & Plan (08/06/2024 2:27 PM PROJECT STRUCTURAL ENGINEER): Stable, well controlled, nocturia times 2-3; no relief with tamsulosin alone Will transition to finasteride 5 mg daily At high risk for falls 08/06/2024 Assessment & Plan (11/20/2024 9:22 PM CDT): Stable, improving; improved blood pressure decreased dizziness Continue fludrocortisone 0.1 mg daily Assessment & Plan (08/06/2024 2:28 PM PROJECT STRUCTURAL ENGINEER): Patient has dizziness as well as dyspnea; no prior relief with midodrine Will start fludrocortisone 0.05 mg daily Immunizations Immunization Administration Dates Next Due COVID-19 mRNA ([employer] Card) 0.3 m L (30 mcg) vaccine (12 years and up) 06/29/2024 DTaP 05/09/2013,04/29/2013 Influenza, Quad, Adjuvantate d, Intramuscular 06/13/2023 Influenza, Quadrivalent, Hig h Dose, Preservative Free, Intrr 05/21/2022,05/28/2021,06/05/2020 Influenza, Trivalent, High D ose, Split, Preservative Free, Intramuscular 06/29/2024,05/22/2022,05/20/2017,05/26,05/15/2015 Influenza, Trivalent, IM (MDV) 06/04/2019,2017,04/29/2014 Pneumococcal Conjugate PCV 13 05/15/2015 Pneumococcal Polysaccharide PPV23 05/17/2014,08/2013 RSV Vaccine, Pref, Recombina nt, Subunit, Adjuvanted, PF, IM (Arexvy) 04/26/2024 ZOSTER LIVE 05/28/2011,08/29/2010 ZOSTER Recombinant 06/29/2018, 8,04/24/2018,04/24 Social History Tobacco Use Types Packs/Day Years Used Date Smoking Tobacco: Former Cigarettes Tobacco Cessation:Counseling Given: Not Answered Alcohol Use Standard Drinks/Week Comments Yes 0 (1 standard drink = 0.6 oz pur e alcohol) PHQ-2 Answer Date Recorded PHQ-2 Total Score (If total score is 3 or more points, staff should administer the PHQ-9) 2 10/31/2024 Sex and Gender Information Value Date Recorded Sex Assigned at Not on file Legal Sex Male 2:52 AM PROJECT STRUCTURAL ENGINEER Gender Identity Not on file Sexual Orientation Not on file Last Filed Vital Signs Vital Sign Reading Time Taken Comments Blood Pressure 136/60 10/31/2024 3:13 PM PROJECT STRUCTURAL ENGINEER Pulse 64 10/31/2024 3:13 PM PROJECT STRUCTURAL ENGINEER Temperature 36.1 C (96.9 F) 10/31/2024 3:13 PM PROJECT STRUCTURAL ENGINEER Respiratory Rate 18 10/31/2024 3:13 PM PROJECT STRUCTURAL ENGINEER Oxygen Saturation 99% 10/31/2024 3:13 PM PROJECT STRUCTURAL ENGINEER Inhaled Oxygen Concentration - - Weight 102.5 kg (226 lb) 10/31/2024 3:13 PM PROJECT STRUCTURAL ENGINEER Height 188 cm (6' 2) 10/31/2024 3:13 PM PROJECT STRUCTURAL ENGINEER Body Mass Index 29.02 10/31/2024 3:13 PM PROJECT STRUCTURAL ENGINEER Plan of Treatment Not on file Insurance [facility] MEDICARE Care Teams Cartridge Gauger Relationship Specialty Start Date End Date [place] [address] PCP - General Family Medicine 07/23/24
--- OUTSIDE RECORDS SUMMARY | 2025-03-17 13:20 | XMS_ITS | Encounter Summary ---
Author Organization [facility] Address [address] [place] [address] Phone Care Team Providers Care Canoe Inspector Name Role Phone Alo Carrasquillo MD Primary Care Provider [phone] Jama Tinajero MD Unavailable Ermias Greene MD Unavailable [phone] August Gant MD Unavailable Nitesh Jules MD Primary Care Provider [phone] Reason for Visit * Reason Comments Medication Refill Encounter Details Date Type Department Care Team (Late st Contact Info) Description 03/08/2023 Refill [facility] - Neurology [facility] [address] [place] [address] Jama Tinajero MD [address] [place] [phone] Medication Refill Social History Tobacco Use Types Packs/Day Years Used Date Smoking Tobacco: Former Cigarettes 2 20 Smokeless Tobacco: Never Alcohol Use Standard Drinks/Week Comments Yes 0 (1 standard drink = 0.6 oz pur e alcohol) 2 drinks per week PHQ-2 Answer Date Recorded Total Score - Questions 1-9 0 12/27 Education Answer Date Recorded What is the [...] suspected to have Coronavirus/COVID-19? No / Unsure 03/07/2023 12:46 PM CDT documented as of this encounter Miscellaneous Notes * Telephone Encounter - Jemima Torrez RN - 03/08/2023 10:51 AM CDT Medication failed the protocol, provider to review and approve the medication order if appropriate. Requested Prescriptions Pending Prescriptions Disp Refills sertraline (ZOLOFT) 25 MG Tablet [Pharmacy Med Name: SERTRALINE HCL 25 MG TABLET] 90 Tablet 0 Sig: TAKE 1 TABLET BY MOUTH EVERY DAY SSRI (6 Month Refill Only) Protocol Failed - 03/08/2023 10:39 AM Failed - Patient has established therapy with SSRI for at least 6 months Passed - Visit with relevant provider in past 6 months or upcoming 90 days Recent Visits Date Type Provider Dept 01/12/23 Office Visit Alo Carrasquillo MD [facility] 11/30/22 Office Visit Jama Tinajero MD [facility] Neurology [facility] Showing recent visits within past 182 days and meeting all other requirements Today's Visits Date Type Provider Dept 03/08/23 Appointment Alo Carrasquillo MD [facility] Showing today's visits and meeting all other requirements Future Appointments Date Type Provider Dept 06/02/23 Appointment Jama Tinajero MD [facility] Neurology [facility] Showing future appointments within next 90 days and meeting all other requirements Passed - Has an encounter in the past 6 months with a depression, anxiety, adjustment disorder, OCD, or PTSD visit diagnosis documented in this encounter Plan of Treatment Upcoming Encounters Date Type Department Care Team (Late st Contact Info) Description 03/29/2025 1:30 PM CDT Clinical Support [facility] Oncology Services [address] [place] [phone] Esdras Davila MD [address] [place] [address] Jama Tinajero MD [address] [place] [address] 04/01/2025 1:00 PM CDT Office Visit [facility] #[address] [place] [address] Jama Tinajero MD [address] [place] [address] 04/12/2025 1:30 PM CDT Clinical Support [facility] Oncology Services [address] [place] [phone] Discharge Disposition: Discharged to home or Selfcare 04/26/2025 1:30 PM CDT Clinical Support [facility] Oncology Services [address] [place] [phone] Discharge Disposition: Discharged to home or Selfcare 05/10/2025 1:00 PM CDT Clinical Support [facility] Oncology Services [address] [place] [phone] Discharge Disposition: Discharged to home or Selfcare documented as of this encounter Visit Diagnoses Not on filedocumented in this encounter Additional Health Concerns Assessment Noted Time PHQ-9 Depression Total Score: 0 01/13/20 23 2:00 PM CDT documented as of this encounter Care Teams Canoe Inspector Relationship Specialty Start Date End Date Alo Carrasquillo MD [address] [place] [address] PCP - General Internal Medicine 05/20/15 10/30/24 Nitesh Jules MD [address] [place] [address] PCP - General Internal Medicine 11/02/24 Jama Tinajero MD [address] [place] [address] Consulting Physician Neurology 11/28/20 Ermias Greene MD [address] [address] Consulting Physician Otolaryngology 03/08/23 August Gant MD [address] [address] Consulting Physician Nephrology 04/12/24 documented as of this encounter
--- OUTSIDE RECORDS SUMMARY | 2025-03-17 13:20 | XMS_ITS | Encounter Summary ---
Author Organization [facility] Address [address] [place] [address] Phone Care Team Providers Care Airset Caster Name Role Phone Alo Carrasquillo MD Primary Care Provider [phone] Jama Tinajero MD Unavailable [phone] Ermias Greene MD Unavailable [phone] August Gant MD Unavailable [phone] Nitesh Jules MD Primary Care Provider [phone] Reason for Visit * Reason Comments Medication Refill Encounter Details Date Type Department Care Team (Late st Contact Info) Description 02/23/2021 Refill [facility] - Primary Care - [place] [address] [place] [address] Alo Carrasquillo MD [address] [place], [place] [phone] Medication Refill Social History Tobacco Use Types Packs/Day Years Used Date Smoking Tobacco: Former Cigarettes 2 20 Smokeless Tobacco: Never Alcohol Use Standard Drinks/Week Comments Yes 0 (1 standard drink = 0.6 oz pur e alcohol) 2 drinks per week PHQ-2 Answer Date Recorded Total Score - Questions 1-9 0 /09/2020 Sexually Active Control Partners Comments Yes Female Sex and Gender Information Value Date Recorded Sex Assigned at Not on file Legal Sex Male 7:47 PM CDT Gender Identity Not on file Sexual Orientation Not on file documented as of this encounter Plan of Treatment Upcoming Encounters Date Type Department Care Team (Late st Contact Info) Description 03/29/2025 1:30 PM CDT Clinical Support [facility] [address] [place] [address] Esdras Davila MD [address] [place] [address] Jama Tinajero MD [address] [place] [address] 04/01/2025 1:00 PM CDT Office Visit [facility] [place] [facility] - Neurology [facility] [address] [place] [address] Jama Tinajero MD [address] [place] [address] 04/12/2025 1:30 PM CDT Clinical Support [facility] Oncology Services [address] [place] [address] Discharge Disposition: Discharged to home or Selfcare 04/26/2025 1:30 PM CDT Clinical Support [facility] Oncology Services [address] [place] [phone] Discharge Disposition: Discharged to home or Selfcare 05/10/2025 1:00 PM CDT Clinical Support [facility] Oncology Services [address] [place] [phone] Discharge Disposition: Discharged to home or Selfcare documented as of this encounter Visit Diagnoses Diagnosis Mild cognitive impairment Mild cognitive impairment, so stated documented in this encounter Additional Health Concerns Assessment Noted Time PHQ-9 Depression Total Score: 0 11/29/19 21 10:00 AM CDT documented as of this encounter Care Teams Airset Caster Relationship Specialty Start Date End Date Alo Carrasquillo MD [address] [place] [address] PCP - General Internal Medicine 05/20/15 10/30/24 Nitesh Jules MD [address] [place] [address] PCP - General Internal Medicine 11/02/24 Jama Tinajero MD [address] [place] [address] Consulting Physician Neurology 11/28/20 Ermias Greene MD [address] [address] Consulting Physician Otolaryngology 03/08/23 August Gant MD [address] [place] [address] Consulting Physician Nephrology 04/12/24 documented as of this encounter
--- OUTSIDE RECORDS SUMMARY | 2025-03-17 13:20 | XMS_ITS | Clinical Summary ---
Author Organization [address] Address [address] [place] [address] Care Team Providers Care Delivery Professional Name Role Phone Nitesh Jules MD Primary Care Provider [phone] Allergies No known active allergies Medications sertraline [...] control Assessment & Plan (08/06/2024 2:26 PM DATABASE MARKETING SPECIALIST): Stable, EGFR in the 40s with no [...] infusions Assessment & Plan (08/06/2024 2:27 PM DATABASE MARKETING SPECIALIST): Patient reports poor memory, forgets trips and [...] delivery Assessment & Plan (08/06/2024 2:27 PM DATABASE MARKETING SPECIALIST): Stable, well controlled; occasional episodes of shortness of breath, continue albuterol p.r.n.; if no improvement, may start controller Benign prostatic hyperplasia with nocturia 08/06 Assessment & Plan (11/20/2024 9:22 PM CDT): Nocturia x4; continue finasteride 5 mg daily, given fall risk, would avoid alpha antagonist Assessment & Plan (08/06/2024 2:27 PM DATABASE MARKETING SPECIALIST): Stable, well controlled, nocturia times 2-3; no relief with tamsulosin alone Will transition to finasteride 5 mg daily At high risk for falls 08/06/2024 Assessment & Plan (11/20/2024 9:22 PM CDT): Stable, improving; improved blood pressure decreased dizziness Continue fludrocortisone 0.1 mg daily Assessment & Plan (08/06/2024 2:28 PM DATABASE MARKETING SPECIALIST): Patient has dizziness as well as dyspnea; no prior relief with midodrine Will start fludrocortisone 0.05 mg daily Immunizations Immunization Administration Dates Next Due COVID-19 mRNA (Akustica) 0.3 m L (30 mcg) vaccine (12 [...] ZOSTER LIVE 05/28/2011,08/29/2010 ZOSTER Recombinant 06/29/2018, 8,04/24/2018,04/24 Surgical History Surgery Date Site/Laterality Comments LUMBAR PUNCTURE WO INJECTION, DIAGNOSTIC 07/01/2023 N/A LUMBAR PUNCTURE WO INJECTION, DIAGNOSTIC 11/20/2021 N/A Medical History Medical History Date Comments Hyperlipidemia Hyperlipidemia Social History Tobacco Use Types Packs/Day Years [...] on file Legal Sex Male 2:52 AM DATABASE MARKETING SPECIALIST Gender Identity Not on file Sexual Orientation Not on file Obstetrics History Last Filed Vital Signs Vital Sign Reading Time Taken Comments Blood Pressure 136/60 10/31/2024 3:13 PM DATABASE MARKETING SPECIALIST Pulse 64 10/31/2024 3:13 PM DATABASE MARKETING SPECIALIST Temperature 36.1 C (96.9 F) 10/31/2024 3:13 PM DATABASE MARKETING SPECIALIST Respiratory Rate 18 10/31/2024 3:13 PM DATABASE MARKETING SPECIALIST Oxygen Saturation 99% 10/31/2024 3:13 PM DATABASE MARKETING SPECIALIST Inhaled Oxygen Concentration - - Weight 102.5 kg (226 lb) 10/31/2024 3:13 PM DATABASE MARKETING SPECIALIST Height 188 cm (6' 2) 10/31/2024 3:13 PM DATABASE MARKETING SPECIALIST Body Mass Index 29.02 10/31/2024 3:13 PM DATABASE MARKETING SPECIALIST Plan of Treatment Health Maintenance Due Date Last Done Comments DTaP/Tdap/Td Vaccine (3 - Tdap) 05/09/2023 3, 04/29/2013 Influenza Vaccine (#1) 2025 4, 06/13/2023, 05/22/2022, Additional history exists Depression Screening 10/31/2025 10/31/2024, 07/23/20 Fall Risk Assessment 10/31/2025 10/31/2024, 07/23/20 Well Visit 65+ 10/31/2025 10/31/2024 Pneumococcal vaccine 65+ Completed 015, 05/17/2014, 04/29/2014 Zoster Vaccine Completed 06/29/2018, 1108/2017, 04/24/2018, Additional history exists Covid-19 Vaccine Completed 06/29/2024, , 06/13/2023, Additional history exists Hepatitis B Screening Completed 10/22/2024 Insurance [facility] Address: [facility] [address] [place] [address] [facility] Address: [address] [place] [address] MEDICARE Care Teams Delivery Professional Relationship Specialty Start Date End Date Nitesh Jules MD [address] [place] [address] PCP - General Family Medicine 07/23/24
--- OUTSIDE RECORDS SUMMARY | 2025-03-17 13:20 | XMS_ITS | Encounter Summary ---
Author Organization [facility] Address [address] [place] [address] Phone Care Team Providers Care Videogame Tester Name Role Phone Alo Carrasquillo MD Primary Care Provider [phone] Jama Tinajero MD Unavailable [phone] Ermias Greene MD Unavailable [phone] August Gant MD Unavailable [phone] Nitesh Jules MD Primary Care Provider [phone] Reason for Visit * Reason Comments Medication Refill Encounter Details Date Type Department Care Team (Late st Contact Info) Description 08/31/2023 Refill [facility] - Neurology [facility] [address] [place] [address] Jama Tinajero MD [address] [place] [phone] Medication Refill Social History Tobacco Use Types [...] Telephone Encounter - Jemima Torrez RN - 08/31/2023 8:12 AM CST Medication failed the protocol, provider to review and approve the medication order if appropriate. Requested Prescriptions Pending Prescriptions Disp Refills sertraline (ZOLOFT) 25 MG Tablet [Pharmacy Med Name: SERTRALINE HCL 25 MG TABLET] 90 Tablet 0 Sig: TAKE 1 TABLET BY MOUTH EVERY DAY SSRI (6 Month Refill Only) Protocol Failed - 08/31/2023 12:35 AM Failed - Has an encounter in the past 6 months with a depression, anxiety, adjustment disorder, OCD, or PTSD visit diagnosis Passed - Visit with relevant provider in past 6 months or upcoming 90 days Recent Visits Date Type Provider Dept 06/02/23 Office Visit [place] Tinajero MD [facility] 03/08/23 Office Visit Alo Carrasquillo MD [facility] Showing recent visits within past 182 days and meeting all other requirements Future Appointments Date Type Provider Dept 09/12/23 Appointment Alo Carrasquillo MD [facility] 09/12/23 Appointment [place] Tinajero MD [facility] Showing future appointments within next 90 days and meeting all other requirements Passed - Patient has established therapy with SSRI for at least 6 months TABLE HANDLER documented in this encounter Plan of Treatment Upcoming Encounters Date Type Department Care Team (Late st Contact Info) Description 03/29/2025 1:30 PM CDT Clinical Support [facility] Oncology Services [address] [place] [phone] Esdras Davila MD [address] [place] [address] Jama Tinajero MD [address] [place] [address] 04/01/2025 1:00 PM CDT Office Visit [facility] [address] [place] [address] Jama Tinajero MD [address] [place] [address] 04/12/2025 1:30 PM CDT Clinical Support [facility] Oncology Services [address] [place] [phone] Discharge Disposition: Discharged to home or Selfcare 04/26/2025 1:30 PM CDT Clinical Support [facility] Oncology Services [address] [place] [phone] Discharge Disposition: Discharged to home or Selfcare 05/10/2025 1:00 PM CDT Clinical Support [facility] Oncology Services [address] [place] [phone] Discharge Disposition: Discharged to home or Selfcare documented as of this encounter Visit Diagnoses Not on filedocumented in this encounter Additional Health Concerns Assessment Noted Time PHQ-9 Depression Total Score: 0 01/13/20 23 2:00 PM CDT documented as of this encounter Care Teams Videogame Tester Relationship Specialty Start Date End Date Alo Carrasquillo MD [address] [place] [address] PCP - General Internal Medicine 05/20/15 10/30/24 Nitesh Jules MD [address] [place] [address] PCP - General Internal Medicine 11/02/24 Jama Tinajero MD [address] [place] [address] Consulting Physician Neurology 11/28/20 Ermias Greene MD [address] [address] Consulting Physician Otolaryngology 03/08/23 August Gant MD [address] [address] Consulting Physician Nephrology 04/12/24 documented as of this encounter
--- OUTSIDE RECORDS SUMMARY | 2025-03-17 13:20 | XMS_ITS | Encounter Summary ---
Author Organization [facility] Address [address] [place] [address] Phone Care Team Providers Care Concrete Fence Builder Name Role Phone Alo Carrasquillo MD Primary Care Provider [phone] Jama Tinajero MD Unavailable Ermias Greene MD Unavailable [phone] August Gant MD Unavailable [phone] Nitesh Jules MD Primary Care Provider [phone] Reason for Visit * Reason Comments Medication Refill Encounter Details Date Type Department Care Team (Late st Contact Info) Description 03/10/2023 Refill [facility] - [facility] [address] [place] [address] Jama Tinajero MD [address] [place] [phone] Medication Refill Social History Tobacco Use Types [...] Telephone Encounter - Jemima Torrez RN - 03/10/2023 2:55 PM CDT Medication failed the protocol, provider to review and approve the medication order if appropriate. Requested Prescriptions Pending Prescriptions Disp Refills memantine (NAMENDA) 10 MG Tablet [Pharmacy Med Name: MEMANTINE HCL 10 MG TABLET] 180 Tablet 5 Sig: TAKE 1 TABLET BY MOUTH TWICE A DAY Antidementia Agents Protocol Failed - 03/10/2023 1:15 PM Failed - Patient has established therapy with Antidementia Agents for at least 6 months Passed - Visit with relevant provider in past 12 months or upcoming 90 days Recent Visits Date Type Provider Dept 03/08/23 Office Visit Alo Carrasquillo MD [facility] 01/12/23 Office Visit Alo Carrasquillo MD [facility] 11/30/22 Office Visit [place] Tinajero MD [facility] Neurology [facility] 06/28/22 Office Visit Alo Carrasquillo MD [facility] 06/21/22 Office Visit [place] Tinajero MD [facility] Neurology [facility] Showing recent visits within past 365 days and meeting all other requirements Future Appointments Date Type Provider Dept 06/02/23 Appointment [place] Tinajero MD [facility] Neurology [facility] Showing future appointments within next 90 days and meeting all other requirements documented in this encounter Plan of Treatment Upcoming Encounters Date Type Department Care Team (Late st Contact Info) Description 03/29/2025 1:30 PM CDT Clinical Support [facility] Oncology Services [address] [place] [phone] Esdras Davila MD [address] [place] [address] Jama Tinajero MD [address] [place] [address] 04/01/2025 1:00 PM CDT Office Visit [facility] [address] [place] [address] Jama Tinajero MD [address] [place] [address] 04/12/2025 1:30 PM CDT Clinical Support [facility] Oncology Services [address] [place] [phone] Discharge Disposition: Discharged to home or Selfcare 04/26/2025 1:30 PM CDT Clinical Support [facility] Oncology Services [address] [place] [phone] Discharge Disposition: Discharged to home or Selfcare 05/10/2025 1:00 PM CDT Clinical Support [facility] Oncology Services [address] [place] [phone] Discharge Disposition: Discharged to home or Selfcare documented as of this encounter Visit Diagnoses Diagnosis Mild cognitive impairment Mild cognitive impairment, so stated documented in this encounter Additional Health Concerns Assessment Noted Time PHQ-9 Depression Total Score: 0 01/13/20 2:00 PM CDT documented as of this encounter Care Teams Concrete Fence Builder Relationship Specialty Start Date End Date Alo Carrasquillo MD [address] [place] [address] PCP - General Internal Medicine 05/20/15 10/30/24 Nitesh Jules MD [address] [place] [address] PCP - General Internal Medicine 11/02/24 [place] Tinajero MD [address] [place] [address] Consulting Physician Neurology 11/28/20 Ermias Greene MD [address] [facility] [address] [place] [address] Consulting Physician Otolaryngology 03/08/23 August Gant MD [address] [address] Consulting Physician Nephrology 04/12/24 documented as of this encounter
--- OUTSIDE RECORDS SUMMARY | 2025-03-17 13:20 | XMS_ITS | Encounter Summary ---
Author Organization [facility] Address [address] [facility] [place] [address] Care Team Providers Care Blow Mold Machine Operator Name Role Phone Unavailable Primary Care Provider Unavailabl e Encounter Details Date Type Department Care Team (Late st Contact Info) Description 09/06/2019 Lab Requisition [facility] Lab [address] [place] [address] Zia Mortensen MD [address] [place] [address] Social History Tobacco Use Types Packs/Day Years Used Date Smoking Tobacco: Former Sex and Gender Information Value Date Recorded Sex Assigned at Not on file Legal Sex Male 1:48 PM CDT Gender Identity Not on file Sexual Orientation Not on file documented as of this encounter Plan of Treatment Not on file documented as of this encounter Procedures Procedure Name Priority Date/Time Associated Diagnosis Comments DERMATOPATHOLOGY Routine 09/05/2019 12:0 0 AM CORNER TRIMMER OPERATOR documented in this encounter Results * DERMATOPATHOLOGY (09/05/2019 12:00 AM CORNER TRIMMER OPERATOR) Case Report Dermatopathology Report Case: [id number] Authorizing Provider: Zia Mortensen MD Collected: 09/05/2019 12:00 AM Ordering Location: [facility] Received: 09/06/2019 01:16 PM Pathologist: Luz Rodriguez MD Specimen: Skin, left forehead hairline 0 11:41 AM CORNER TRIMMER OPERATOR DERMATOPATHOLOGY LABORATORY Addendum 1 This lesion is present at the base of the specimen. 0 11:41 AM [facility] DERMATOPATHOLOGY LABORATORY Addendum electronically signed by Luz Rodriguez MD on 09/25/2019 at 1141 CORNER TRIMMER OPERATOR Final Diagnosis Specimen A. SKIN, left forehead hairline: BASAL CELL CARCINOMA, INFILTRATIVE PATTERN ([id number]) 0 11:41 AM [facility] DERMATOPATHOLOGY LABORATORY at 1419 CORNER TRIMMER OPERATOR Clinical History R/O BCC, SCC, Victor's, HAK. 0 11:41 AM [facility] DERMATOPATHOLOGY [facility]ORAT[facility] Gross Description Specimen A: Received is one formalin filled container labeled with the patient's name and designated left forehead hairline. The specimen consists of a shave biopsy measuring [id number]. Jar 0. 0 11:41 AM [facility] DERMATOPATHOLOGY LABORATORY Microscopic Description Specimen A. SKIN, left forehead hairline: Within the dermis there are nodular aggregates of basaloid cells associated with fibromyxoid stroma and epithelial-stromal clefts. At the advancing margin of the neoplasm, there are smaller angulated nests that infiltrate the dermis. 0 11:41 AM [facility] DERMATOPATH[facility]Y [facility]ORAT[facility] Disclaimer An external and internal positive and negative controls are appropriate for the histochemical, immunohistochemical and immunofluorescence stain(s) in this case (if any), except where stated explicitly. The performance characteristics of the stain(s) cited in this report were developed and its performance characteristic determined by the Dermatopathology Laboratory at [facility], directed by Dr. Dick Rodriguez. These tests need not be, and therefore are not, approved by the [place] Food and Drug Administration. The tests are used for clinical purposes. Billing Codes Specimen Charges Stain Charges 48933 1 0 11:41 AM [facility] DERMATOPATH[facility]Y [facility]OR[facility] Embedded Images 0 11:41 AM [facility] DERMATOPATH[facility] Pathology/Cytolog y TISSUE SPECIMEN FROM SKIN / Unknown 09/05/2019 09/06/2019 1:16 PM CORNER TRIMMER OPERATOR us Zia Mortensen MD LAB - PATHOLOGY/CYTOLOGY ORD ERABLES Edited Result - Final DERMATOPATHOLOGY LABORATORY [facility] - Department of Dermatology [address] [facility], 5th [place] [address], [facility] [phone] documented in this encounter Visit Diagnoses Not on filedocumented in this encounter
--- OUTSIDE RECORDS SUMMARY | 2025-03-17 13:20 | XMS_ITS | Encounter Summary ---
Author Organization [facility] Address [address] [place] [address] Phone Care Team Providers Care Pre Press Proofer Name Role Phone Alo Carrasquillo MD Primary Care Provider [phone] Jama Tinajero MD Unavailable [phone] Ermias Greeen MD Unavailable [phone] August Gant MD Unavailable [phone] Nitesh Jules MD Primary Care Provider [phone] Reason for Visit * Reason Comments Medication Refill Encounter Details Date Type Department Care Team (Late st Contact Info) Description 01/21/2024 Refill [facility] - Primary Care - Anay [address] [place] [address] Alo Carrasquillo MD [address] [place] [place], [place] [id number] Medication Refill Social History Tobacco Use Types Packs/Day Years Used Date Smoking Tobacco: Former Cigarettes 2 20 Smokeless Tobacco: Never Alcohol Use Standard Drinks/Week Comments Yes 0 (1 standard drink = 0.6 oz pur e alcohol) 2 drinks per week [facility] Utilities Answer Date Recorded In the past 12 months has [employer], gas, oil, or water [employer] threatened to shut off services in your home? No 09/11/2023 Social Connection and Isolation Panel Answer Date Recorded In a typical week, how many times do you talk on the phone with family, friends, or neighbors? Three times a week 09/11/2023 How often do you get togethe r with friends or relatives? Twice a week 09/11/2023 How often do you attend chur ch or baptist services? Never 09/11/2023 Do you belong to any clubs o r organizations such as protestant groups, unions, fraternal or athletic groups, or school groups? No 09/11/2023 How often do you attend meet ings of the clubs or organizations you belong to? Never 09/11/2023 Are you , , di vorced, , never , or living with a partner? 09/11/2023 AUDIT-C Answer Date Recorded Q1: How often do you have a drink containing alc ohol? Monthly or less 09/11/2023 Q2: How many drinks containi ng alcohol do you have on a typical day when you are drinking? 1 or 2 09/11/2023 Q3: How often do you have si x or more drinks on one occasion? Never 09/11/2023 Overall Financial Resource Strain (CARDIA) Answe r Date Recorded How hard is it for you to pa y for the very basics like food, housing, medical care, and heating? Patient declined 09/11/2023 PHQ-2 Answer Date Recorded Total Score - Questions 1-9 0 08/29 [facility] - Occupational Stress Questionnaire Answer Date Recorded Do you feel stress - tense, restless, nervous, or anxious, or unable to sleep at night because your mind is troubled all the time - these days? To some extent 09/11/2023 Exercise Vital Sign Answer Date Recorde d On average, how many days pe r week do you engage in moderate to strenuous exercise (like a brisk walk)? 0 days 09/11/2023 On average, how many minutes do you engage in exercise at this level? 0 min 09/11/2023 Hunger Vital Sign Answer Date Recorded Within the past 12 months, y ou worried that your food would run out before you got the money to buy more. Never true 09/11/19 24 Within the past 12 months, t he food you bought just didn't last and you didn't have money to get more. Never true 09/11/2023 PRAPARE - Transportation Answer Date Re corded In the past 12 months, has l ack of transportation kept you from medical appointments or from getting medications? No 08/29 In the past 12 months, has l ack of transportation kept you from meetings, work, or from getting things needed for daily living? No 09/11/2023 Housing Stability Vital Sign Answer Jose [...] place to sleep or slept in a fdc (including now)? Yes 09/11/2023 Education Answer Date Recorded What is the [...] encounter Miscellaneous Notes * Telephone Encounter - Rodolfo Milligan RN - 01/24/2024 8:23 AM CDT Refill requested too soon. documented in this encounter Plan of Treatment Upcoming Encounters Date Type Department Care Team (Late st Contact Info) Description 03/29/2025 1:30 PM CDT Clinical Support [facility] Oncology Services [address] [place] [phone] Esdras Davila MD [address] [place] [address] Jama Tinajero MD [address] [place] [address] 04/01/2025 1:00 PM CDT Office Visit [facility] [address] [place] [address] Jama Tinajero MD [address] [place] [address] 04/12/2025 1:30 PM CDT Clinical Support [facility] Oncology Services [address] [place] [address] Discharge Disposition: Discharged to home or Selfcare 04/26/2025 1:30 PM CDT Clinical Support [facility] Oncology Services [address] [place] [address] Discharge Disposition: Discharged to home or Selfcare 05/10/2025 1:00 PM CDT Clinical Support [facility] Oncology Services [address] [place] [address] Discharge Disposition: Discharged to home or Selfcare documented as of this encounter Visit Diagnoses Diagnosis Mild cognitive impairment Mild cognitive impairment, so stated documented in this encounter Additional Health Concerns Assessment Noted Time PHQ-9 Depression Total Score: 0 09/12/19 24 11:18 AM MACHINE FEED OPERATOR documented as of this encounter Care Teams Pre Press Proofer Relationship Specialty Start Date End Date Alo Carrasquillo MD [address] [place] [address] PCP - General Internal Medicine 05/20/15 10/30/24 Nitesh Jules MD [address] [place] [address] PCP - General Internal Medicine 11/02/24 Jama Tinajero MD [address] [place] [address] Consulting Physician Neurology 11/28/20 Ermias Greene MD [address] [facility] [address] [place] [address] Consulting Physician Otolaryngology 03/08/23 August Gant MD 2 [facility], [address] [address] Consulting Physician Nephrology 04/12/24 documented as of this encounter
--- OUTSIDE RECORDS SUMMARY | 2025-03-17 13:20 | XMS_ITS | Encounter Summary ---
Author Organization [facility] Address [address] [place] [address] Phone Care Team Providers Care Gut Carrier Name Role Phone Alo Carrasquillo MD Primary Care Provider [phone] Jama Tinajero MD Unavailable [phone] Ermias Greene MD Unavailable [phone] August Gant MD Unavailable [phone] Nitesh Jules MD Primary Care Provider [phone] Reason for Visit * Reason Comments Medication Refill Encounter Details Date Type Department Care Team (Late st Contact Info) Description 01/28/2024 Refill [facility] - Primary Care - Anay [address] [place] [address] Alo Carrasquillo MD [address] [place], [place] [id number] Medication Refill Social History Tobacco Use Types Packs/Day Years Used Date Smoking Tobacco: Former Cigarettes 2 20 Smokeless Tobacco: Never Alcohol Use Standard Drinks/Week Comments Yes 0 (1 standard drink = 0.6 oz pur e alcohol) 2 drinks per week [facility] Utilities Answer Date Recorded In the past 12 months has [employer], gas, oil, or water [employer] threatened to shut off services in your [...] often do you attend chur ch or adventism services? Never 09/11/2023 Do you belong to any clubs o r organizations such as restorationist groups, unions, fraternal or athletic groups, or [...] Total Score - Questions 1-9 0 08/29 [facility] - Occupational Stress Questionnaire Answer Date Recorded [...] place to sleep or slept in a care home (including now)? Yes 09/11/2023 Education Answer Date [...] Description 03/29/2025 1:30 PM CDT Clinical Support [facility] Oncology Services [address] [place] [phone] Esdras Davila MD [address] [place] [address] Jama Tinajero MD [address] [place] [phone] 04/01/2025 1:00 PM CDT [facility] [address] [place] [phone] Jama Tinajero MD [address] [place] [address] 04/12/2025 1:30 PM CDT Clinical Support [facility] Oncology Services [address] [place] [phone] Discharge Disposition: Discharged to home or Selfcare 04/26/2025 1:30 PM CDT Clinical Support [facility] Oncology Services [address] [place] [phone] Discharge Disposition: Discharged to home or Selfcare 05/10/2025 1:00 PM CDT Clinical Support [facility] Oncology Services [address] [place] [phone] Discharge Disposition: Discharged to home or Selfcare documented as of this encounter Visit Diagnoses Diagnosis Mixed hyperlipidemia documented in this encounter Additional Health Concerns Assessment Noted Time PHQ-9 Depression Total Score: 0 09/12/19 24 11:18 AM CARGO SERVICE AGENT documented as of this encounter Care Teams Gut Carrier Relationship Specialty Start Date End Date Alo Carrasquillo MD [address] [place] [address] PCP - General Internal Medicine 05/20/15 10/30/24 Nitesh Jules MD [address] [place] [address] PCP - General Internal Medicine 11/02/24 Jama Tinajero MD [address] [place] [address] Consulting Physician Neurology 11/28/20 Ermias Greene MD [address] [facility] [address] [place] [address] Consulting Physician Otolaryngology 03/08/23 August Gant MD 2 [facility], [address] [address] Consulting Physician Nephrology 04/12/24 documented as of this encounter
--- OUTSIDE RECORDS SUMMARY | 2025-03-17 13:20 | XMS_ITS | Encounter Summary ---
Author Organization [facility] Address [address] [place] [address] Care Team Providers Care Fish Fryer Name Role Phone Unavailable Primary Care Provider Unavailabl e Encounter Details Date Type Department Care Team (Late st Contact Info) Description 10/29/2021 Lab Requisition [facility] DermPath Lab [address] [facility] [place] [address] Zia Mortensen MD [address] [place] [address] Social History Tobacco Use Types Packs/Day Years [...] Priority Date/Time Associated Diagnosis Comments DERMATOPATHOLOGY Routine 10/28/2021 12:0 0 AM PIPE INSTALLER documented in this encounter Results * DERMATOPATHOLOGY (10/28/2021 12:00 AM PIPE INSTALLER) Case Report Dermatopathology Report Case: [id number] Authorizing Provider: Zia Mortensen MD Collected: 10/28/2021 12:00 AM Ordering Location: [facility] DermPath Lab Received: 10/29/2021 12:33 PM Pathologist: Luz Rodriguez MD Specimen: Skin, left side nose 5:34 PM PIPE INSTALLER DERMATOPATHOLOGY LABORATORY Final Diagnosis Specimen A. SKIN, left side nose: BASAL CELL CARCINOMA, INFILTRATIVE PATTERN (C44.311) 2 5:34 PM [facility] DERMATOPATHOLOGY LABORATORY at [address] [facility] Clinical History R/O BCC. 2 5:34 PM [facility] DERMATOPATHOLOGY LABORATORY Gross Description Specimen A: Received is one formalin filled container labeled with the patient's name and designated left side nose. The specimen consists of a shave biopsy measuring [id number] & 7x5s1dc. Jar 0. 2 5:34 PM [facility] DERMATOPATHOLOGY LABORATORY Microscopic Description Specimen A. SKIN, left side nose: Within the dermis there are nodular aggregates of basaloid cells associated with fibromyxoid stroma and epithelial-stromal clefts. At the advancing margin of the neoplasm, there are smaller angulated nests that infiltrate the dermis. 2 5:34 PM [facility] DERMATOPATHOLOGY LABORATORY Disclaimer An external and internal positive and negative controls are appropriate for the histochemical, immunohistochemical and immunofluorescence stain(s) in this case (if any), except where stated explicitly. The performance characteristics of the stain(s) cited in this report were developed and its performance characteristic determined by the Dermatopathology Laboratory at [facility], directed by Dr. Dick Rodriguez. These tests need not be, and therefore are not, approved by the [place] Food and Drug Administration. The tests are used for clinical purposes. Billing Codes Specimen Charges Stain Charges 53606 1 2 5:34 PM [facility] DERMATOPATHOLOGY LABORATORY Embedded Images 2 5:34 PM [facility] DERMATOPATHOLOGY LABORATORY Pathology/Cytolog y TISSUE SPECIMEN FROM SKIN / Unknown 10/28/2021 10/29/2021 12:33 PM PIPE INSTALLER us Zia Mortensen MD LAB - PATHOLOGY/CYTOLOGY ORD ERABLES Final Result DERMATOPATHOLOGY LABORATORY [facility] - Department of Dermatology [address] [place] [address], [facility] [phone] documented in this encounter Visit Diagnoses Not on filedocumented in this encounter
--- OUTSIDE RECORDS SUMMARY | 2025-03-17 13:20 | XMS_ITS | Encounter Summary ---
Author Organization [facility] Address [address] [place] [address] Phone Care Team Providers Care Family Health Nurse Practitioner Name Role Phone Alo Carrasquillo MD Primary Care Provider [phone] Jama Tinajero MD Unavailable Ermias Greene MD Unavailable [phone] August Gant MD Unavailable [phone] Nitesh Jules MD Primary Care Provider [phone] Reason for Visit * Reason Comments Medication Refill Encounter Details Date Type Department Care Team (Late st Contact Info) Description 06/03/2023 Refill [facility] - Neurology [facility] [address] [place] [address] Jama Tinajero MD [address] [place] [address] Medication Refill Social History Tobacco Use Types [...] Telephone Encounter - Jemima Torrez RN - 06/03/2023 8:03 AM CDT Medication failed the protocol, provider to review and approve the medication order if appropriate. Requested Prescriptions Pending Prescriptions Disp Refills sertraline (ZOLOFT) 25 MG Tablet [Pharmacy Med Name: SERTRALINE HCL 25 MG TABLET] 90 Tablet 0 Sig: TAKE 1 TABLET BY MOUTH EVERY DAY SSRI (6 Month Refill Only) Protocol Failed - 06/03/2023 1:04 AM Failed - Has an encounter in the past 6 months with a depression, anxiety, adjustment disorder, OCD, or PTSD visit diagnosis Passed - Visit with relevant provider in past 6 months or upcoming 90 days Recent Visits Date Type Provider Dept 06/02/23 Office Visit Jama Tinajero MD [facility] Neurology [facility] 03/08/23 Office Visit Alo Carrasquillo MD [facility] 01/12/23 Office Visit Alo Carrasquillo MD [facility] Showing recent visits within past 182 days and meeting all other requirements Future Appointments No visits were found meeting these conditions. Showing future appointments within next 90 days and meeting all other requirements Passed - Patient has established therapy with SSRI for at least 6 months documented in this encounter Plan of Treatment Upcoming Encounters Date Type Department Care Team (Late st Contact Info) Description 03/29/2025 1:30 PM CDT Clinical Support [facility] Oncology Services [address] [place] [address] Esdras Davila MD [address] [place] [address] Jama Tinajero MD [address] [place] [address] 04/01/2025 1:00 PM CDT Office Visit [facility] [address] [place] [address] Jama Tinajero MD [address] [place] [address] 04/12/2025 1:30 PM CDT Clinical Support [facility] Oncology Services [address] [place] [phone] Discharge Disposition: Discharged to home or Selfcare 04/26/2025 1:30 PM CDT Clinical Support [facility] Oncology Services [address] [place] [phone] Discharge Disposition: Discharged to home or Selfcare 05/10/2025 1:00 PM CDT Clinical Support [facility] Oncology Services [address] [place] [phone] Discharge Disposition: Discharged to home or Selfcare documented as of this encounter Visit Diagnoses Not on filedocumented in this encounter Additional Health Concerns Assessment Noted Time PHQ-9 Depression Total Score: 0 01/13/20 2:00 PM CDT documented as of this encounter Care Teams Family Health Nurse Practitioner Relationship Specialty Start Date End Date Alo Carrasquillo MD [address] [place] [address] PCP - General Internal Medicine 05/20/15 10/30/24 Nitesh Jules MD [address] [place] [address] PCP - General Internal Medicine 11/02/24 Jama Tinajero MD [address] [place] [address] Consulting Physician Neurology 11/28/20 Ermias Greene MD [address] [address] Consulting Physician Otolaryngology 03/08/23 August Gant MD [address] [address] Consulting Physician Nephrology 04/12/24 documented as of this encounter
--- OUTSIDE RECORDS SUMMARY | 2025-03-17 13:20 | XMS_ITS | Encounter Summary ---
Author Organization [facility] Address [address] [place] [address] Phone Care Team Providers Care Utility Mechanic Name Role Phone Alo Carrasquillo MD Primary Care Provider [phone] Jama Tinajero MD Unavailable [phone] Ermias Greene MD Unavailable [phone] August Gant MD Unavailable [phone] Nitesh Jules MD Primary Care Provider [phone] Reason for Visit * Reason Comments Medication Refill Encounter Details Date Type Department Care Team (Late st Contact Info) Description 07/06/2024 Refill [facility] - Primary Care - Anay [address] [place] [address] Alo Carrasquillo MD [address] [place], [place] [phone] Medication Refill Social History Tobacco Use Types Packs/Day Years Used Date Smoking Tobacco: Former Cigarettes 2 43 0 1958 - 1977 Smokeless Tobacco: Never Alcohol Use Standard Drinks/Week Comments Not Currently 2 (1 standard drink = 0.6 oz pur e alcohol) 2 drinks per week [facility] Utilities Answer Date Recorded In the past 12 months has th e electric, gas, oil, or water [employer] threatened to shut off services in your home? No 04/12/2024 Social Connection and Isolation Panel Answer Date Recorded In a typical week, how many times do you talk on the phone with family, friends, or neighbors? Patient declined 04/12/2024 How often do you get togethe r with friends or relatives? Patient declined 04/12/2024 How often do you attend rastafari or protestant serv ices? Patient declined 04/12/2024 Do you belong to any clubs o r organizations such as rastafari groups, unions, fraternal or athletic groups, or [...] Total Score - Questions 1-9 0 08/29 [facility] - Occupational [...] place to sleep or slept in a prison (including now)? Yes 09/11/2023 Housing Stability Vital Sign Answer Jose e Recorded In the last 12 months, was t here a time when you were not able to pay the mortgage or rent on time? No 04/12/2024 Number of Times Moved in the Last Year Not on fi le 04/12/2024 At any time in the past 12 m [facility], were you homeless or living in a prison (including now)? No 04/12/2024 Education Answer Date [...] encounter Miscellaneous Notes * Telephone Encounter - Aminah Bowser - 07/09/2024 9:15 AM CST Spoke with pt's , she stated she will call back and schedule an appointment. F RADIOLOGIST * Telephone Encounter - Kalyn Ashby RN - 07/06/2024 10:18 AM STAFF RADIOLOGIST Routing to [facility] to contact patient. F RADIOLOGIST * Telephone Encounter - Alo Carrasquillo MD - 07/06/2024 10:12 AM STAFF RADIOLOGIST This medication is not due for refill until August 24. Also, the patient is due for follow-up fasting office visit in July but it does not appear that he has 1 scheduled. F RADIOLOGIST * Telephone Encounter - Rodolfo Milligan RN - 07/06/2024 10:00 AM CST Medication failed the protocol, provider to review and approve the medication order if appropriate. Requested Prescriptions Pending Prescriptions Disp Refills Anoro Ellipta 62.5-25 MCG/ACT AEROSOL POWDER, BREATH ACTIVATED [Pharmacy Med Name: ANORO ELLIPTA 62.5-25 MCG INH] 60 Each 2 Sig: INHALE 1 PUFF BY MOUTH EVERY DAY Inhaled Combinations Protocol Failed - 07/06/2024 9:52 AM Failed - Active short-acting beta agonist prescription Passed - Visit with relevant provider in past 12 months or upcoming 90 days Recent Visits Date Type Provider Dept 04/12/24 Office Visit Alo Carrasquillo MD [facility] 02/13/24 Office Visit Beckie Morrison, QUALITY CONTROL LAB TECHNICIAN, PROFESSOR OF EARLY CHILDHOOD EDUCATION [facility] 09/12/23 Office Visit Alo Carrasquillo MD [facility] Showing recent visits within past 365 days and meeting all other requirements Future Appointments No visits were found meeting these conditions. Showing future appointments within next 90 days and meeting all other requirements F RADIOLOGIST documented in this encounter Plan of Treatment Upcoming Encounters Date Type Department Care Team (Late st Contact Info) Description 03/29/2025 1:30 PM CDT Clinical Support [facility] Oncology Services [address] [place] [phone] Esdras Davila MD [address] [place] [address] Jama Tinajero MD [address] [place] [address] 04/01/2025 1:00 PM CDT Office Visit [facility] #2 [place] [address] Jama Tinajero MD [address] [place] [address] 04/12/2025 1:30 PM CDT Clinical Support [facility] Oncology Services [address] [place] [phone] Discharge Disposition: Discharged to home or Selfcare 04/26/2025 1:30 PM CDT Clinical Support [facility] Oncology Services [address] [place] [phone] Discharge Disposition: Discharged to home or Selfcare 05/10/2025 1:00 PM CDT Clinical Support [facility] Oncology Services [address] [place] [phone] Discharge Disposition: Discharged to home or Selfcare documented as of this encounter Visit Diagnoses Diagnosis Panlobular emphysema (HCC) Other emphysema documented in this encounter Additional Health Concerns Assessment Noted Time PHQ-9 Depression Total Score: 0 09/12/19 24 11:18 AM STAFF RADIOLOGIST documented as of this encounter Care Teams Utility Mechanic Relationship Specialty Start Date End Date Alo Carrasquillo MD [address] [place] [address] PCP - General Internal Medicine 05/20/15 10/30/24 Nitesh Jules MD [address] [place] [address] PCP - General Internal Medicine 11/02/24 Jama Tinajero MD [address] [place] [address] Consulting Physician Neurology 11/28/20 Ermias Greene MD [address] [address] Consulting Physician Otolaryngology 03/08/23 August Gant MD [address] [address] Consulting Physician Nephrology 04/12/24 documented as of this encounter
--- OUTSIDE RECORDS SUMMARY | 2025-03-17 13:20 | XMS_ITS | Clinical Summary ---
Author Organization [facility] Address [address] [place] [address] Care Team Providers Care Mechanical Engineering Draftsperson Name Role Phone Unavailable Primary Care Provider Unavailabl e Source Comments [facility],non-owned Affiliates and Associated Physician Practices is amultiple site organization consisting of ambulatory clinics and hospital sitesin [place], [place], [place] and [place]. This disclosure is being madepursuant to the Care Everywhere program and may not contain all information available regarding this patient. Last updated 18.[facility] Allergies No known active allergies Medications * Be aware that medications may not be up to date on this document. Alwaysverify current medications with the patient. LOVASTATIN PO Active fluticasone propionate (FLONASE) 50 MCG/ACT nasal spray [place] 2 Sprays into each nostril once daily 1 Bottle 12/24/2016 Active Social History Tobacco Use Types Packs/Day Years Used Date Smoking Tobacco: Former Sex and Gender Information Value Date Recorded Sex Assigned at Not on file Legal Sex Male 1:48 PM CDT Gender Identity Not on file Sexual Orientation Not on file Last Filed Vital Signs Vital Sign Reading Time Taken Comments Blood Pressure 122/66 12/24/2016 2:06 PM CDT Pulse 87 12/24/2016 2:06 PM CDT Temperature 37.2 C (99 F) 12/24/2016 2:06 PM CDT Respiratory Rate - - Oxygen Saturation - - Inhaled Oxygen Concentration - - Weight 114.3 kg (252 lb) 12/24/2016 2:06 PM CDT Height 188 cm (6' 2) 12/24/2016 2:06 PM CDT Body Mass Index 32.35 12/24/2016 2:06 PM CDT Plan of Treatment Health Maintenance Due Date Last Done Comments DTAP/TDAP/TD VACCINES (1 - Tdap) 1962 PNEUMOCOCCAL VACCINE 50+ (1 of 1 - PCV) 1993 ZOSTER VACCINE (1 of 2) 1993 Respiratory Syncytial Virus (RSV) Vaccine Pt: or over 60 yrs (1 - 1-dose 75+ series) 2018 COVID-19 VACCINE (1 - 2023-2 5 season) 2024 DEPRESSION SCREENING 08/29/2024 INFLUENZA VACCINE (#1) 2025 HEPATITIS B VACCINE Aged Out No longe r eligible based on patient's age to complete this topic HIB VACCINE Aged Out No longer eligi ble based on patient's age to complete this topic HPV VACCINE Aged Out No longer eligi ble based on patient's age to complete this topic MENINGOCOCCAL (Group B) VACC INE SHARED DECISION-MAKING Aged Out No longer eligibl e based on patient's age to complete this topic MENINGOCOCCAL GROUPS A/C/Y/W VACCINE Aged Out No longer eligible b ased on patient's age to complete this topic Insurance [place], [place] [id number] MEDICARE [facility] MEDICARE [facility] MEDICARE
--- OUTSIDE RECORDS SUMMARY | 2025-03-17 13:20 | XMS_ITS | Encounter Summary ---
Author Organization [facility] Address [address] [place] [address] Phone Care Team Providers Care Skylights Assembler Name Role Phone Alo Carrasquillo MD Primary Care Provider [phone] Jama Tinajero MD Unavailable Ermias Greene MD Unavailable [phone] August Gant MD Unavailable [phone] Nitesh Jules MD Primary Care Provider [phone] Reason for Visit * Reason Comments Medication Refill Encounter Details Date Type Department Care Team (Late st Contact Info) Description 12/01/2023 Refill [facility] - Neurology [facility] [address] [place] [phone] Jama Tinajero MD [address] [place] [phone] Medication Refill Social History Tobacco Use Types Packs/Day Years Used Date Smoking Tobacco: Former Cigarettes 2 20 Smokeless Tobacco: Never Alcohol Use Standard Drinks/Week Comments Yes 0 (1 standard drink = 0.6 oz pur e alcohol) 2 drinks per week [facility] Utilities Answer Date Recorded In the past 12 months has [employer], gas, oil, or water [employer] threatened to shut off services in your [...] often do you attend chur ch or church services? Never 09/11/2023 Do you belong to any clubs o r organizations such as evangelical groups, unions, fraternal or athletic groups, or [...] Total Score - Questions 1-9 0 08/29 [facility] - Occupational Stress [...] the money to buy more. Never true 01/14/20 24 Within the past 12 months, t [...] place to sleep or slept in a intermediate (including now)? Yes 09/11/2023 Education Answer Date [...] Telephone Encounter - Jemima Torrez RN - 12/01/2023 8:13 AM CDT Medication failed the protocol, provider to review and approve the medication order if appropriate. Requested Prescriptions Pending Prescriptions Disp Refills sertraline (ZOLOFT) 25 MG Tablet [Pharmacy Med Name: SERTRALINE HCL 25 MG TABLET] 90 Tablet 0 Sig: TAKE 1 TABLET BY MOUTH EVERY DAY SSRI (6 Month Refill Only) Protocol Failed - 12/01/2023 1:18 AM Failed - Has an encounter in the past 6 months with a depression, anxiety, adjustment disorder, OCD, or PTSD visit diagnosis Passed - Visit with relevant provider in past 6 months or upcoming 90 days Recent Visits Date Type Provider Dept 09/12/23 Procedure Visit [facility] 09/12/23 Office Visit Jama Tinajero MD [facility] Neurology [place] [facility] 09/12/23 Office Visit Alo Carrasquillo MD [facility] 06/02/23 Office Visit Jama Tinajero MD [facility] Neurology [place] [facility] Showing recent visits within past 182 days and meeting all other requirements Future Appointments Date Type Provider Dept 01/16/24 Appointment Jama Tinajero MD [facility] Neurology [place] [facility] Showing future appointments within next 90 days and meeting all other requirements Passed - Patient has established therapy with SSRI for at least 6 months documented in this encounter Plan of Treatment Upcoming Encounters Date Type Department Care Team (Late st Contact Info) Description 03/29/2025 1:30 PM CDT Clinical Support [facility] Oncology Services [address] [place] [address] Esdras Davila MD [address] [place] [address] Jama Tinajero MD [address] [place] [address] 04/01/2025 1:00 PM CDT Office Visit [facility] Emergency Department [address] [place] [address] Jama Tinajero MD [address] [place] [address] 04/12/2025 1:30 PM CDT Clinical Support [facility] Oncology Services [address] [place] [address] Discharge Disposition: Discharged to home or Selfcare 04/26/2025 1:30 PM CDT Clinical Support [facility] [address] [place] [address] Discharge Disposition: Discharged to home or Selfcare 05/10/2025 1:00 PM CDT Clinical Support [facility] [address] [place] [address] Discharge Disposition: Discharged to home or Selfcare documented as of this encounter Visit Diagnoses Not on filedocumented in this encounter Additional Health Concerns Assessment Noted Time PHQ-9 Depression Total Score: 0 09/12/19 11:18 AM BUILDING SPECIALIST documented as of this encounter Care Teams Skylights Assembler Relationship Specialty Start Date End Date Alo Carrasquillo MD [address] [place] [address] PCP - General Internal Medicine 05/20/15 10/30/24 Nitesh Jules MD [address] [place] [address] PCP - General Internal Medicine 11/02/24 Jama Tinajero MD [address] [place] [address] Consulting Physician Neurology 11/28/20 Ermias Greene MD [address] [facility] [address] [place] [address] Consulting Physician Otolaryngology 03/08/23 August Gant MD [address] [place] [address] Consulting Physician Nephrology 04/12/24 documented as of this encounter
[2025-03-17 13:22] VITALS: BP 149/86; PULSE 59; RESP 18; TEMP 36.2; O2SAT 98
--- NOTE | 2025-03-17 13:38 | ED_ITS ---
HPI - Wound/Laceration General Chief Complaint: Wound/Laceration Stated Complaint: Laceration to Right Arm Time Seen by Provider: 03/17/25 13:38 Source: patient Mode of arrival: ambulatory Limitations: no limitations History of Present Illness HPI narrative: 79-year-old male presented for complaint of a laceration to the right forearm. Onset this morning. He states he stumbled while walking into the door and struck the arm on the door frame.Cleansed and dressed the wound this morning. Unsure last tetanus. Related Data Home Medications ?Medication ?Instructions ?Recorded ?Confirmed ?Last Taken ?Type donepezil 10 mg tablet 10 mg PO QHS 02/07/23 03/07/23 Unknown History lovastatin 20 mg tablet 20 mg PO DAILY 02/07/23 03/07/23 Unknown History umeclidinium 62.5 mcg-vilanterol 1 inh inhalation DAILY 02/07/23 03/07/23 Unknown History 25 mcg/actuation powdr for inhalation (Anoro Ellipta) albuterol sulfate 90 mcg/actuation inhalation 03/17/25 Unknown History aerosol inhaler finasteride 5 mg tablet mg 03/17/25 Unknown History fludrocortisone 0.1 mg tablet mg 03/17/25 Unknown History fluticasone propionate 230 inhalation 03/17/25 Unknown History mcg-salmeterol 21 mcg/actuation HFA inhaler hydroxyzine HCl 25 mg tablet mg 03/17/25 Unknown History memantine 10 mg tablet mg 03/17/25 Unknown History sertraline 50 mg tablet mg 03/17/25 Unknown History Allergies Allergy/AdvReac Type Severity Reaction Status Date / Time No Known Allergies Allergy Verified 03/17/25 13:34 Review of Systems Review of Systems: CONSTITUTIONAL: Denies body aches, fever, chills, or sweats. EYES: Denies visual changes, redness, or discharge. ENT: Denies rhinorrhea, congestion CARDIOVASCULAR: Denies chest pain, palpitations, or edema. RESPIRATORY: Denies cough or dyspnea. GASTROINTESTINAL: Denies abdominal pain, nausea, vomiting, or diarrhea. SKIN: reports right forearm laceration MUSCULOSKELETAL: Denies back pain, joint pain, or myalgia. NEUROLOGIC: Denies headache, numbness, tingling, or weakness. [facility] Past Medical History Medical History Sensorineural hearing loss of combined sites, bilateral Social History Social History Social History: Caffeine-coffee Smoking status: Never smoker Smoking end date: 08/29/77 Alcohol intake: current Alcohol use details: rarely Substance use: never Substance use type: does not use Lack of Transportation: No Lack of Food: Never True Current Housing: I Have Housing Concerned About Future Housing: No Difficulty Paying Gas/Electric Bills: No Difficulty Paying for Meds: No Currently Unemployed: No Education: Associate Degree Difficulty w/ Childcare or Family Care: No Living arrangements: with family Occupation/Education: retired Gender identity (if verbalized by the patient): Male Comments At time of signature, I have reviewed and agree with nursing past medical, surgical, social and family history unless otherwise noted. Please see nursing chart for further information. There is no relevant family history pertinent to the presenting complaint Exam Narrative: GENERAL: Well-appearing HEAD: Normocephalic, atraumatic. EYES: conjunctivae clear, and EOMI. ENT: Mucous membranes moist. Oropharynx without edema, erythema or lesions. NECK: Supple. No lymphadenopathy CHEST: Clear to auscultation. HEART: Regular rate and rhythm. SKIN: Warm, dry. Right forearm laceration 8cm, linear, gaping 1cm with fat exposed. CMS intact. NEURO: Alert and oriented x3. Course Course Emergency Course: Patient is aware of diagnosis, understands and agrees to treatment plan. Anticipatory guidance given. Patient agrees to follow-up as directed and is aware of reasons to seek care at the emergency department. Portions of this record may have been created with voice recognition software Level of Care: Express Care Visit Vital Signs Vital signs: Vital Signs Temperature 97.2 F L 03/17/25 13:22 Pulse Rate 59 L 03/17/25 13:22 Respiratory Rate 18 03/17/25 13:22 Blood Pressure 149/86 H 03/17/25 13:22 Pulse Oximetry 98 03/17/25 13:22 Oxygen Delivery Room Air 03/17/25 13:22 Temperature 97.2 F L 03/17/25 13:22 Pulse Rate 59 L 03/17/25 13:22 Respiratory Rate 18 03/17/25 13:22 Blood Pressure 149/86 H 03/17/25 13:22 Pulse Oximetry 98 03/17/25 13:22 Oxygen Delivery Room Air 03/17/25 13:22 Reviewed Procedures Laceration right forearm: Date: 03/17/25 Size (cm): 8.5 Description: linear and clean Depth: simple, single layer Local Anesthetic: lidocaine 1% and with epi Amount of anesthesia used (mL): 15 Pre-repair: wound explored and irrigated (sterile water 50mL, skintegrity, idodine) ====== Skin Level ====== Skin layer closed with: nylon Size (cm): 5-0 Number of sutures: 17 Technique: simple, interrupted ====== Subcutaneous Layer ====== ====== Muscle Layer ====== ====== Tendon Layer ====== Dressing: The procedure and its alternatives were reviewed with patient. Risks were reviewed with patient including infection and damage to nearby structures. Patient provided verbal informed consent. The patient was positioned appropriately. Sterile drapes applied to maintain sterile field. Wound was explored for abnormalities including infection and foreign bodies. Sutures placed with wound edges approximated. Patient tolerated well, no complications. Dressing applied per RN. MDM - Wound/Laceration MDM Narrative Medical decision making narrative: Discussed physical exam findings; shared decision making, patient is agreeable to suture placement. Tolerated sutures, Tetanus updated today. Advised supportive measures and signs/symptoms to go to the ER. Pt is appropriate for outpt treatment and f/u. Differential Diagnosis Differential diagnosis: Likely laceration, abrasion and avulsion of skin Discharge Plan Discharge Clinical Impression: Laceration Patient Disposition: Home Condition: Stable Instructions: Antibiotic Form, Care For Your Stitches (ED), Laceration (ED) Additional Instructions: Your sutures need to be removed in 7-10 days. You can return to the clinic or follow up with your pcp. Wear the dressing that has been applied for the first 24 hours to allow a scab to start forming. After this, you may remove and wash gently with soap and water. Do NOT wash with peroxide or alcohol. Take tylenol for pain, as needed Take antibiotic as directed Tetanus updated today Follow up with your PCP Go to the ER with any signs of infection such as redness, swelling, increased pain, or drainage. Patient Language: Kyrgyz Prescriptions: New cephalexin 500 mg capsule 500 mg PO Q12H 5 Days Qty: 10 0RF No Action albuterol sulfate 90 mcg/actuation HFA aerosol inhaler INHALATION sertraline 50 mg tablet memantine 10 mg tablet hydroxyzine HCl 25 mg tablet fludrocortisone 0.1 mg tablet finasteride 5 mg tablet fluticasone propion-salmeterol 230-21 mcg/actuation HFA aerosol inhaler INHALATION donepezil 10 mg tablet 10 mg PO QHS lovastatin 20 mg tablet 20 mg PO DAILY Anoro Ellipta 62.5-25 mcg/actuation blister with device 1 inh inhalation DAILY Follow-up/Referrals: Jorge A,MD Nitesh [Primary Care Provider] -
[2025-03-17] MEDS: TETANUS,DIPHTHERIA,AC PERTUSSIS ADULT (0.5 ML) BOOSTRIX IM (13:50)
[2025-03-17] MEDS: LIDO 1%/EPINEPHRINE 1:100,000 20 ML VIAL INFILTRATE (13:50)
== END 2025-03-17 14:43 | disposition home or self-care (01) ==
PROVIDERS: Emergency Provider Nurse Practitioner Family; PCP Hospitalist
DX: S51.811A Laceration without foreign body of right forearm, initial encounter (principal); W22.09XA Striking against other stationary object, initial encounter; Z87.891 Personal history of nicotine dependence; Z23 Encounter for immunization
CPT/HCPCS: 12004; 90471; 90715; 99213; G0463; J2004

== ENCOUNTER 2025-03-28 14:22 | Emergency (ER) | payer MEDICARE, BC, SELFPAY ==
--- OUTSIDE RECORDS SUMMARY | 2025-03-28 14:25 | XMS_ITS | Encounter Summary ---
Author Organization [facility] Address [address] [place] [address] Phone Care Team Providers Care Rug Underlay Machine Operator Name Role Phone Alo Carrasquillo MD Primary Care Provider [phone] Jama Tinajero MD Unavailable [phone] Ermias Greene MD Unavailable [phone] August Gant MD Unavailable [phone] Nitesh Jules MD Primary Care Provider [phone] Reason for Visit * Reason Comments Medication Refill Encounter Details Date Type Department Care Team (Late st Contact Info) Description 01/28/2024 Refill [facility] - Primary Care - [place] [address] [place] [address] Alo Carrasquillo MD [address] [place], [place] [id number] Medication Refill Social History Tobacco Use Types Packs/Day Years Used Date Smoking Tobacco: Former Cigarettes 2 20 Smokeless Tobacco: Never Alcohol Use Standard Drinks/Week Comments Yes 0 (1 standard drink = 0.6 oz pur e alcohol) 2 drinks per week [facility] Utilities Answer Date Recorded In the past 12 months has [employer], gas, oil, or water [employer] threatened to shut off services in your [...] often do you attend chur ch or scientologist services? Never 09/11/2023 Do you belong to any clubs o r organizations such as baptist groups, unions, fraternal or athletic groups, or [...] Total Score - Questions 1-9 0 08/29 [facility] - Occupational Stress Questionnaire Answer Date Recorded [...] place to sleep or slept in a jail (including now)? Yes 09/11/2023 Education Answer Date [...] Description 03/29/2025 1:30 PM CDT Clinical Support [facility] Oncology Services [address] [place] [phone] Esdras Davila MD [address] [place] [address] Jama Tinajero MD [address] [place] [address] Discharge Disposition: Discharged to home or Selfcare 04/01/2025 1:00 PM CDT Office Visit [facility] [place] [facility] [address] [place] [address] Jama Tinajero MD [address] [place] [address] 04/12/2025 1:30 PM CDT Clinical Support [facility] Oncology Services [address] [place] [address] Discharge Disposition: Discharged to home or Selfcare 04/26/2025 1:30 PM CDT Clinical Support [facility] Oncology Services [address] [place] [address] Discharge Disposition: Discharged to home or Selfcare 05/10/2025 1:00 PM CDT Clinical Support [facility] Oncology Services [address] [place] [phone] Discharge Disposition: Discharged to home or Selfcare documented as of this encounter Visit Diagnoses Diagnosis Mixed hyperlipidemia documented in this encounter Additional Health Concerns Assessment Noted Time PHQ-9 Depression Total Score: 0 09/12/19 24 11:18 AM SEISMOGRAPH SUPERVISOR documented as of this encounter Care Teams Rug Underlay Machine Operator Relationship Specialty Start Date End Date Alo Carrasquillo MD [address] [place] [address] PCP - General Internal Medicine 05/20/15 10/30/24 Nitesh Jules MD [address] [place] [address] PCP - General Internal Medicine 11/02/24 Jama Tinajero MD [address] [place] [address] Consulting Physician Neurology 11/28/20 Ermias Greene MD [address] [facility] [address] [place] [address] Consulting Physician Otolaryngology 03/08/23 August Gant MD [address] [facility] [address] [place] [address] Consulting Physician Nephrology 04/12/24 documented as of this encounter
--- OUTSIDE RECORDS SUMMARY | 2025-03-28 14:25 | XMS_ITS | Encounter Summary ---
Author Organization [facility] Address [address] [place] [address] Phone Care Team Providers Care Supervisor Pleating Name Role Phone Alo Carrasquillo MD Primary Care Provider [phone] Jama Tinajero MD Unavailable Ermias Greene MD Unavailable August Gant MD Unavailable [phone] Nitesh Jules MD Primary Care Provider [phone] Reason for Visit * Reason Comments Medication Refill Encounter Details Date Type Department Care Team (Late st Contact Info) Description 12/01/2023 Refill [facility] - Neurology [facility] [address] [place] [phone] Jama Tinajero MD [address] [place] [address] Medication Refill Social History Tobacco Use Types Packs/Day Years Used Date Smoking Tobacco: Former Cigarettes 2 20 Smokeless Tobacco: Never Alcohol Use Standard Drinks/Week Comments Yes 0 (1 standard drink = 0.6 oz pur e alcohol) 2 drinks per week [facility] Utilities Answer Date Recorded In the past 12 months has [employer], gas, oil, or water [employer] threatened to shut off services in your [...] often do you attend chur ch or protestant services? Never 09/11/2023 Do you belong to any clubs o r organizations such as zoroastrianism groups, unions, fraternal or athletic groups, or [...] Total Score - Questions 1-9 0 08/29 [facility] of Occupat ional Health - Occupational [...] in a prison (including now)? Yes 09/11/2023 Education Answer Date [...] Date Type Provider Dept 09/12/23 Procedure Visit [facility] 09/12/23 Office Visit Jama Tinajero MD [facility] [place] [facility] 09/12/23 Office Visit Alo Carrasquillo MD [facility] 06/02/23 Office Visit Jama Tinajero MD [facility] [place] [facility] Showing recent visits within past 182 days and meeting all other requirements Future Appointments Date Type Provider Dept 01/16/24 Appointment Jama Tinajero MD [facility] [place] [facility] Showing future appointments within next 90 days and meeting all other requirements Passed - Patient has established therapy with SSRI for at least 6 months documented in this encounter Plan of Treatment Upcoming Encounters Date Type Department Care Team (Late st Contact Info) Description 03/29/2025 1:30 PM CDT Clinical Support [facility] Oncology Services [address] [place] [address] Esdras Davila MD [address] [place] [address] Jama Tinajero MD [address] [place] [address] Discharge Disposition: Discharged to home or Selfcare 04/01/2025 1:00 PM CDT Office Visit [facility] [address] [place] [address] Jama Tinajero MD [address] [place] [address] 04/12/2025 1:30 PM CDT Clinical Support [facility] Oncology Services [address] [place] [phone] Discharge Disposition: Discharged to home or Selfcare 04/26/2025 1:30 PM CDT Clinical Support [facility] Oncology Services [address] [place] [address] Discharge Disposition: Discharged to home or Selfcare 05/10/2025 1:00 PM CDT Clinical Support [facility] Oncology Services [address] [place] [address] Discharge Disposition: Discharged to home or Selfcare documented as of this encounter Visit Diagnoses Not on filedocumented in this encounter Additional Health Concerns Assessment Noted Time PHQ-9 Depression Total Score: 0 09/12/19 11:18 AM INTERIOR BLOCK WIRER documented as of this encounter Care Teams Supervisor Pleating Relationship Specialty Start Date End Date Alo Carrasquillo MD [address] [place] [address] PCP - General Internal Medicine 05/20/15 10/30/24 Nitesh Jules MD [address] [place] [address] PCP - General Internal Medicine 11/02/24 Jama Tinajero MD [address] [place] [address] Consulting Physician Neurology 11/28/20 Ermias Greene MD [address] [facility] [address] [place] [address] Consulting Physician Otolaryngology 03/08/23 August Gant MD [address] [place] [address] Consulting Physician Nephrology 04/12/24 documented as of this encounter
--- OUTSIDE RECORDS SUMMARY | 2025-03-28 14:25 | XMS_ITS | Encounter Summary ---
Author Organization [facility] Address [address] [place] [address] Phone Care Team Providers Care Scaling Machine Operator Name Role Phone Alo Carrasquillo MD Primary Care Provider [phone] Jama Tinajero MD Unavailable [phone] Ermias Greene MD Unavailable [phone] August Gant MD Unavailable [phone] Nitesh Jules MD Primary Care Provider Reason for Visit * Reason Comments Medication Refill Encounter Details Date Type Department Care Team (Late st Contact Info) Description 02/23/[address] [facility] - Primary Care - Anay [address] [place] [address] Alo Carrasquillo MD [address] [place], [place] [id number] Medication Refill Social History Tobacco Use Types [...] Description 03/29/2025 1:30 PM CDT Clinical Support [facility] [address] [place] [address] Esdras Davila MD [address] [place] [address] Jama Tinajero MD [address] [place] [address] Discharge Disposition: Discharged to home or Selfcare 04/01/2025 1:00 PM CDT Office Visit [facility] #2 [place] [address] Jama Tinajero MD [address] [place] [address] 04/12/2025 1:30 PM CDT Clinical Support [facility] [address] [place] [address] Discharge Disposition: Discharged to home or Selfcare 04/26/2025 1:30 PM CDT Clinical Support [facility] [address] [place] [phone] Discharge Disposition: Discharged to home or Selfcare 05/10/2025 1:00 PM CDT Clinical Support [facility] [address] [place] [phone] Discharge Disposition: Discharged to home or Selfcare documented as of this encounter Visit Diagnoses Diagnosis Mild cognitive impairment Mild cognitive impairment, so stated documented in this encounter Additional Health Concerns Assessment Noted Time PHQ-9 Depression Total Score: 0 11/29/19 21 10:00 AM CDT documented as of this encounter Care Teams Scaling Machine Operator Relationship Specialty Start Date End Date Alo Carrasquillo MD [address] [place] [address] PCP - General Internal Medicine 05/20/15 10/30/24 Nitesh Jules MD [address] [place] [address] PCP - General Internal Medicine 11/02/24 Jama Tinajero MD [address] [place] [address] Consulting Physician Neurology 11/28/20 Ermias Greene MD [address] [address] Consulting Physician Otolaryngology 03/08/23 August Gant MD [address] [place] [address] Consulting Physician Nephrology 04/12/24 documented as of this encounter
--- OUTSIDE RECORDS SUMMARY | 2025-03-28 14:25 | XMS_ITS | Encounter Summary ---
Author Organization [facility] Address [address] [place] [address] Phone Care Team Providers Care Oracle Database Developer Name Role Phone Alo Carrasquillo MD Primary Care Provider [phone] Jama Tinajero MD Unavailable [phone] Ermias Greene MD Unavailable [phone] August aGnt MD Unavailable [phone] Nitesh Jules MD Primary Care Provider [phone] Reason for Visit * Reason Comments Medication Refill Encounter Details Date Type Department Care Team (Late st Contact Info) Description 08/31/2023 Refill [facility] - Neurology [facility] [address] [place] [address] Jama Tinajero MD [address] [place] [phone] Medication Refill Social History Tobacco Use Types [...] Dept 06/02/23 Office Visit Jama Tinajero MD [facility] 03/08/23 Office Visit Alo Carrasquillo MD [facility] Showing recent visits within past 182 days and meeting all other requirements Future Appointments Date Type Provider Dept 09/12/23 Appointment Alo Carrasquillo MD [facility] 09/12/23 Appointment Jama Tinajero MD [facility] Showing future appointments within next 90 days and meeting all other requirements Passed - Patient has established therapy with SSRI for at least 6 months AL TECH documented in this encounter Plan of Treatment Upcoming Encounters Date Type Department Care Team (Late st Contact Info) Description 03/29/2025 1:30 PM CDT Clinical Support [facility] On[facility] Services [address] [place] [address] Esdras Davila MD [address] [place] [address] Jama Tinajero MD [address] [place] [address] Discharge Disposition: Discharged to home or Selfcare 04/01/2025 1:00 PM CDT Office Visit [facility] #2 [place] [address] Jama Tinajero MD [address] [place] [address] 04/12/2025 1:30 PM CDT Clinical Support [facility] Services [address] [place] [address] Discharge Disposition: Discharged to home or Selfcare 04/26/2025 1:30 PM CDT Clinical Support [facility] [address] [place] [phone] Discharge Disposition: Discharged to home or Selfcare 05/10/2025 1:00 PM CDT Clinical Support [facility] [address] [place] [phone] Discharge Disposition: Discharged to home or Selfcare documented as of this encounter Visit Diagnoses Not on filedocumented in this encounter Additional Health Concerns Assessment Noted Time PHQ-9 Depression Total Score: 0 01/13/20 23 2:00 PM CDT documented as of this encounter Care Teams Oracle Database Developer Relationship Specialty Start Date End Date Alo Carrasquillo MD [address] [place] [address] PCP - General Internal Medicine 05/20/15 10/30/24 Nitesh Jules MD [address] [place] [address] PCP - General Internal Medicine 11/02/24 Jama Tinajero MD [address] [place] [address] Consulting Physician Neurology 11/28/20 Ermias Greene MD [address] [address] Consulting Physician Otolaryngology 03/08/23 August Gant MD [address] [address] Consulting Physician Nephrology 04/12/24 documented as of this encounter
--- OUTSIDE RECORDS SUMMARY | 2025-03-28 14:25 | XMS_ITS | Encounter Summary ---
Author Organization [facility] Address [address] [place] [address] Phone Care Team Providers Care Assembler Arranger Name Role Phone Alo Carrasquillo MD Primary Care Provider [phone] Jama Tinajero MD Unavailable [phone] Ermias Greene MD Unavailable [phone] August Gant MD Unavailable [phone] Nitesh Jules MD Primary Care Provider Encounter Details Date Type Department Care Team (Late st Contact Info) Description 06/23/2023 Transcribe Orders [facility] Diagnostic Radiology [address] [place] [address] Jama Tinajero MD [address] [place] [address] Mild cognitive impairment (Primary Dx); Other halfway (current) drug therapy; Pre-operative laboratory examination; Encounter [...] Description 03/29/2025 1:30 PM CDT Clinical Support [facility] Oncology Services [address] [place] [phone] Esdras Davila MD [address] [place] [address] Jama Tinajero MD [address] [place] [address] Discharge Disposition: Discharged to home or Selfcare 04/01/2025 1:00 PM CDT Office Visit [facility] #2 [place] [address] Jama Tinajero MD [address] [place] [address] 04/12/2025 1:30 PM CDT Clinical Support [facility] [address] [place] [phone] Discharge Disposition: Discharged to home or Selfcare 04/26/2025 1:30 PM CDT Clinical Support [facility] [address] [place] [address] Discharge Disposition: Discharged to home or Selfcare 05/10/2025 1:00 PM CDT Clinical Support [facility] [address] [place] [phone] Discharge Disposition: Discharged to home or Selfcare documented as of this encounter Results * APTT (PTT) (06/28/2023 1:09 PM CDT) Pathologist [facility] PTT 32 24 - 36 sec 06/28/2023 2:09 PM CDT [facility] Blood Venipuncture / Unknown 06/28/2023 1:09 PM CDT 06/28/2023 1:51 PM CDT Narrative [facility] - 06/28/2023 2:09 PM CDT Therapeutic range for unfractionated heparin at 0.3-0.7 U/mL is an aPTT value in the range of 71-100 seconds. Critical value for the PTT test is >= 122 seconds. us Jama Tinajero MD HEMATOLOGY ORDERABLES Final Result [facility] [address] [place] [address] * PROTIME (PT) (PROTHROMBIN TIME) (06/28/2023 1:09 PM CDT) PROTIME-PATIENT 13.0 11.6 - 14.8 sec 06/28/2023 2:09 PM CDT [facility] INR 1.0 0.9 - 1.2 06/28/2023 2:09 PM CDT [facility] Comment: Therapeutic Ranges INR = 2.0-3.0: Venous thromb, atrial fib, pul embolism, tissue heart valve, ami. INR = 2.5-3.5: Mechanical heart valve Critical value for INR is >/= 4.5 Blood Venipuncture / Unknown 06/28/2023 1:09 PM CDT 06/28/2023 1:51 PM CDT us Jama Tinajero MD HEMATOLOGY ORDERABLES Final Result [facility] [address] [place] [address] * (ABNORMAL) BASIC METABOLIC PANEL W/ CALCIUM TOTAL (06/28/2023 1:09 PM CDT) SODIUM 142 136 - 145 mmol/L 06/28/2023 2:18 PM CDT [facility] POTASSIUM 4.2 3.5 - 5.1 mmol/L 06/28/2023 2:18 PM CDT [facility] CHLORIDE 107 98 - 107 mmol/L 06/28/2023 2:18 PM CDT [facility] CO2, VENOUS 27 22 - 30 mmol/L 06/28/2023 2:18 PM CDT [facility] ANION GAP 12.2 <18.0 mmol/L 06/28/2023 2:18 PM CDT [facility] GLUCOSE 158(H) 70 - 99 mg/dL 06/28/2023 2:18 PM CDT [facility] BUN 15 8 - 26 mg/dL 06/28/2023 2:18 PM CDT [facility] CREATININE, BLOOD 1.48(H) 0.70 - 1.30 mg/dL 06/28/2023 2:18 PM CDT [facility] BUN/CREATININE RATIO 10(L) 12 - 20 ratio 06/28/2023 2:18 PM CDT [facility] CALCIUM 8.4(L) 8.7 - 10.5 mg/dL 06/28/2023 2:18 PM CDT [facility] IS THE PATIENT REQUIRED TO BE FASTING? No 06/28/2023 2:18 PM CDT [facility] GFR, ESTIMATED 48(L) >=60 06/28/2023 2:18 PM CDT [facility] Comment: Creatinine Clearance is the preferred criteria for selecting drug dose adjustments in renally impaired patients. The GFR is provided as additional pertinent clinical information. GFR is reported in mL/min/1.73 sq m. Calculation based on the Chronic Kidney Disease Epidemiology Collaboration (CKD- EPI) equation refit without adjustment for race. GFR, EST. 55(L) >=60 023 2:18 PM CDT [facility] GFR, EST. NONAFRICAN 46(L) >=60 06/28/2023 2:18 PM CDT [facility] Blood Venipuncture / Unknown 06/28/2023 1:09 PM CDT 06/28/2023 1:51 PM CDT us Jama Tinajero MD CHEMISTRY ORDERABLES Final R esult [facility] [address] [place] [address] documented in this encounter Visit Diagnoses Diagnosis Mild cognitive impairment- Primary Mild cognitive impairment, so stated Other halfway (current) drug therapy Pre-operative laboratory examination Pre-procedural laboratory examination Encounter for therapeutic drug monitoring documented in this encounter Additional Health Concerns Assessment Noted Time PHQ-9 Depression Total Score: 0 01/13/20 23 2:00 PM CDT documented as of this encounter Care Teams Assembler Arranger Relationship Specialty Start Date End Date Alo Carrasquillo MD [address] [place] [address] PCP - General Internal Medicine 05/20/15 10/30/24 Nitesh Jules MD [address] [place] [address] PCP - General Internal Medicine 11/02/24 Jama Tinajero MD [address] [place] [address] Consulting Physician Neurology 11/28/20 Ermias Greene MD [address] [facility] [address] [place] [address] Consulting Physician Otolaryngology 03/08/23 August Gant MD 2 [facility] [address] [place] [address] Consulting Physician Nephrology 04/12/24 documented as of this encounter
--- OUTSIDE RECORDS SUMMARY | 2025-03-28 14:25 | XMS_ITS | Encounter Summary ---
Author Organization [facility] Address [address] [place] [address] Care Team Providers Care Cork Molder Name Role Phone Unavailable Primary Care Provider Unavailabl e Encounter Details Date Type Department Care Team (Late st Contact Info) Description 09/06/2019 Lab Requisition [facility] [address] [place] [address] Zia Mortensen MD [address] [place] [address] Social History Tobacco Use Types [...] Comments DERMATOPATHOLOGY Routine 09/05/2019 12:0 0 AM CLAIMS MANAGER documented in this encounter Results * DERMATOPATHOLOGY (09/05/2019 12:00 AM CLAIMS MANAGER) Case Report Dermatopathology Report Case: [id number] Authorizing Provider: Zia Mortensen MD Collected: 09/05/2019 12:00 AM Ordering Location: [facility] Received: 09/06/2019 01:16 PM Pathologist: Luz Rodriguez MD Specimen: Skin, left forehead hairline 0 11:41 AM CLAIMS MANAGER DERMATOPATHOLOGY LABORATORY Addendum 1 This lesion is present at the base of the specimen. 0 11:41 AM [facility] Addendum electronically signed by Luz Rodriguez MD on 09/25/2019 at 1141 CLAIMS MANAGER Final Diagnosis Specimen A. SKIN, left forehead hairline: BASAL CELL CARCINOMA, INFILTRATIVE PATTERN (C44.319) 0 11:41 AM [facility] DERMATOPATH[facility]ORATORY at 1419 CLAIMS MANAGER Clinical History R/O BCC, SCC, Victor's, HAK. 0 11:41 AM [facility]ER[facility] Gross Description Specimen A: Received is one formalin filled container labeled with the patient's name and designated left forehead hairline. The specimen consists of a shave biopsy measuring [id number]. Jar 0. 0 11:41 AM [facility]ERMAT[facility]ATH[facility]OR[facility] Microscopic Description Specimen A. SKIN, left forehead hairline: Within the dermis there are nodular aggregates of basaloid cells associated with fibromyxoid stroma and epithelial-stromal clefts. At the advancing margin of the neoplasm, there are smaller angulated nests that infiltrate the dermis. 0 11:41 AM [facility] Disclaimer An external and internal positive and negative controls are appropriate for the histochemical, immunohistochemical and immunofluorescence stain(s) in this case (if any), except where stated explicitly. The performance characteristics of the stain(s) cited in this report were developed and its performance characteristic determined by the Dermatopathology Laboratory at [facility], directed by Dr. Dick Rodriguez. These tests need not be, and therefore are not, approved by the [place] Food and Drug Administration. The tests are used for clinical purposes. Billing Codes Specimen Charges Stain Charges 94967 1 0 11:41 AM [facility] Embedded Images 0 11:41 AM [facility]MAT[facility] Pathology/Cytolog y TISSUE SPECIMEN FROM SKIN / Unknown 09/05/2019 09/06/2019 1:16 PM CLAIMS MANAGER us Zia Mortensen MD LAB - PATHOLOGY/CYTOLOGY ORD ERABLES Edited Result - Final DERMATOPATHOLOGY LABORATORY [facility] - Department of Dermatology [address] [facility], [address]th [place] [address], [facility] [phone] documented in this encounter Visit Diagnoses Not on filedocumented in this encounter
--- OUTSIDE RECORDS SUMMARY | 2025-03-28 14:25 | XMS_ITS | Encounter Summary ---
Author Organization [facility] Address [address] [place] [address] Phone Care Team Providers Care Textile Finisher Name Role Phone Alo Carrasquillo MD Primary Care Provider [phone] Jama Tinajero MD Unavailable [phone] Ermias Greene MD Unavailable [phone] August Gant MD Unavailable [phone] Nitesh Jules MD Primary Care Provider [phone] Reason for Visit * Reason Comments Medication Refill Encounter Details Date Type Department Care Team (Late st Contact Info) Description 03/01/[address] [facility] - Primary Care - Anay [address] [place] [address] Alo Carrasquillo MD [address] [place], [place] [id number] Medication Refill Social History Tobacco Use Types [...] 03/29/2025 1:30 PM CDT Clinical Support [facility] Oncology Services [address] [place] [phone] Esdras Davila MD [address] [place] [address] Jama Tinajero MD [address] [place] [address] Discharge Disposition: Discharged to home or Selfcare 04/01/2025 1:00 PM CDT Office Visit [facility] #[address] [place] [address] Jama Tinajero MD [address] [place] [address] 04/12/2025 1:30 PM CDT Clinical Support [facility] Oncology Services [address] [place] [phone] Discharge Disposition: Discharged to home or Selfcare 04/26/2025 1:30 PM CDT Clinical Support [facility] Oncology Services [address] [place] [phone] Discharge Disposition: Discharged to home or Selfcare 05/10/2025 1:00 PM CDT Clinical Support [facility] Oncology Services [address] [place] [address] Discharge Disposition: Discharged to home or Selfcare documented as of this encounter Visit Diagnoses Not on filedocumented in this encounter Additional Health Concerns Assessment Noted Time PHQ-9 Depression Total Score: 0 04/01/20 1:00 PM CDT documented as of this encounter Care Teams Textile Finisher Relationship Specialty Start Date End Date Alo Carrasquillo MD [address] [place] [address] PCP - General Internal Medicine 05/20/15 10/30/24 Nitesh Jules MD [address] [place] [address] PCP - General Internal Medicine 11/02/24 Jama Tinajero MD [address] [place] [address] Consulting Physician Neurology 11/28/20 Ermias Greene MD [address] [facility] [address] [place] [address] Consulting Physician Otolaryngology 03/08/23 August Gant MD 2 [facility], [address] [address] Consulting Physician Nephrology 04/12/24 documented as of this encounter
--- OUTSIDE RECORDS SUMMARY | 2025-03-28 14:25 | XMS_ITS | Clinical Summary ---
Author Organization [facility] Address [address] [place] [address] Phone Care Team Providers Care Coat Agent Name Role Phone Jama Tinajero MD Unavailable [phone] Ermias Greene MD Unavailable [phone] August Gant MD Unavailable [phone] Nitesh Jules MD Primary Care Provider [phone] Allergies No known active allergies Medications Cyanocobalamin [...] EVERY DAY 90 Tablet 1 025 Active lecanemab-IRMB (Leqembi) 200 MG/2ML SolutionIndicatio ns: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 behavioral disturbance, psychotic disturbance, mood disturbance, or anxiety (HCC) 10 mL by Intravenous route every 14 days. 10 mL 6 025 Active hydrOXYzine (ATARAX) 25 MG Tablet TAKE 1 TABLET BY MOUTH EVERY 6 HOURS NEEDED FOR ANXIETY 15 Tablet 025 Active donepezil (ARICEPT) 10 MG TabletIndications :Mild cognitive impairment TAKE 1 TABLET BY MOUTH EVERY DAY AT NIGHT 90 Tablet 025 Active hydrOXYzine (ATARAX) 25 MG Tablet Take 1 Tablet by mouth every 6 hours as needed for Anxiety. 15 Tablet 025 2024 Discontinued donepezil (ARICEPT) 10 MG TabletIndications :Mild cognitive impairment TAKE 1 TABLET BY MOUTH EVERY DAY AT NIGHT 90 Tablet 025 2024 Discontinued Active Problems Problem [...] Encounters Date Type Department Care Team Description 03/20/2025 Refill [facility] - Primary Care - Anay [address] [place] [address] Jama Tinajero MD Medication Refill 03/15/2025 1:30 PM CDT Clinical Support [facility] Oncology Services [address] [place] [phone] Jama Tinajero MD Alzheimer's disease (Primary Dx); Mild cognitive impairment; 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 behavioral disturbance, psychotic disturbance, mood disturbance, or anxiety (HCC) Discharge Disposition: Discharged to home or Selfcare 03/15/2025 Travel 03/09/2025 Refill [facility] Neurology [facility] [address] [place] [address] Jama Tinajero MD Medication Refill 02/28/2025 2:00 PM CDT Clinical Support [facility] Oncology Services [address] [place] [phone] Esdras Davila MD Sherwood, Karna D, MD Mild cognitive impairment Discharge Disposition: Discharged to home or Selfcare 02/28/2025 Travel 02/05/2025 1:00 PM CDT Clinical Support [facility] Oncology Services [address] [place] [phone] Jama Tinajero MD Alzheimer's disease (Primary Dx); Mild cognitive impairment Discharge Disposition: Discharged to home or Selfcare 02/05/2025 Travel 02/05/2025 Telephone [facility] [address] [place] [address] Jama Tinajero MD 01/18/2025 1:30 PM CDT Clinical Support [facility] Oncology Services [address] [place] [phone] Jama Tinajero MD Mild cognitive impairment Discharge Disposition: Discharged to home or Selfcare 01/18/2025 Travel 12/28/2024 1:00 PM CDT Clinical Support [facility] Oncology Services [address] [place] [address] Marah Guevara PAC Sandhu, Manpreet Kaur, MD Mild cognitive impairment Discharge Disposition: Discharged to home or Selfcare 12/28/2024 Travel from Last 3 Months Immunizations Immunization Administration [...] pur e alcohol) 2 drinks per week [facility] Utilities Answer Date Recorded In the past 12 months has e [employer], gas, oil, or water company threatened to shut off services in your home? No 04/12/2024 Social Connection and Isolation Panel Answer Date Recorded In a typical week, how many times do you talk on the phone with family, friends, or neighbors? Patient declined 04/12/2024 How often do you get togethe r with friends or relatives? Patient declined 04/12/2024 How often do you attend methodist or judaism serv ices? Patient declined 04/12/2024 Do you belong to any clubs o r organizations such as methodist groups, unions, fraternal or athletic groups, or [...] Score - Questions 1-9 0 08/29 [facility] - Occupational Stress Questionnaire Answer Date [...] place to sleep or slept in a alf (including now)? Yes 09/11/2023 Housing Stability Vital Sign Answer Jose e Recorded In the last 12 months, was t here a time when you were not able to pay the mortgage or rent on time? No 04/12/2024 Number of Times Moved in the Last Year Not on fi le 04/12/2024 At any time in the past 12 m [facility], were you homeless or living in a alf (including now)? No 04/12/2024 Education Answer Date [...] 188 cm (6' 2) 10/05/2024 1:49 PM HEAT TREATING BLUER Body Mass Index 29.3 10/05/2024 1:49 PM HEAT TREATING BLUER Plan of Treatment Upcoming Encounters Date Type Department Care Team (Late st Contact Info) Description 03/29/2025 1:30 PM CDT Clinical Support [facility] Oncology Services [address] [place] [phone] Esdras Davila MD [address] [place] [address] Jama Tinajero MD [address] [place] [address] Discharge Disposition: Discharged to home or Selfcare 04/01/2025 1:00 PM CDT Office Visit [facility] [address] [place] [address] Jama Tinajero MD [address] [place] [address] 04/12/2025 1:30 PM CDT Clinical Support [facility] Oncology Services [address] [place] [phone] Discharge Disposition: Discharged to home or Selfcare 04/26/2025 1:30 PM CDT Clinical Support [facility] Oncology Services [address] [place] [phone] Discharge Disposition: Discharged to home or Selfcare 05/10/2025 1:00 PM CDT Clinical Support [facility] Oncology Services [address] [place] [phone] Discharge Disposition: Discharged to home or Selfcare [...] Immunization (Adult) Completed 04/26/2024 SARS-COV-2 Immunization Completed 06/29/20, 04/26/2024, 06/13/2023, Additional history exists Hepatitis B [...] W/ ESTIMATED GLUCOSE Routine 09/12/2023 11:44 AM HEAT TREATING BLUER Type 2 diabetes mellitus without complication, without long-term current use of insulin (HCC) HEPATITIS C ANTIBODY Routine 09/12/2023 11:44 AM HEAT TREATING BLUER Encounter for hepatitis C screening test for low risk patient from Last 3 Months or Most Recently Relevant to Health Maintenance Results * DILATED EYE EXAM (04/11/2024 12:00 AM CDT) 04/11/2024 us Provider Scan PROCEDURE/MINOR SURGICAL ORDERAB LES Final Result SCAN * (ABNORMAL) CMP (Comprehensive Metabolic Panel) (04/05/2024 7:17 PM CDT) SODIUM 142 136 - 145 mmol/L 04/05/2024 7:48 PM CDT [facility] POTASSIUM 4.3 3.5 - 5.1 mmol/L 04/05/2024 7:48 PM CDT [facility] CHLORIDE 106 98 - 107 mmol/L 04/05/2024 7:48 PM CDT [facility] CO2, VENOUS 25 22 - 30 mmol/L 04/05/2024 7:48 PM CDT [facility] ANION GAP 15.3 <18.0 mmol/L 04/05/2024 7:48 PM CDT [facility] GLUCOSE 87 70 - 99 mg/dL 04/05/2024 7:48 PM CDT [facility] BUN 19 8 - 26 mg/dL 04/05/2024 7:48 PM CDT [facility] CREATININE, BLOOD 1.70(H) 0.70 - 1.30 mg/dL 04/05/2024 7:48 PM CDT [facility] BUN/CREATININE RATIO 11(L) 12 - 20 ratio 04/05/2024 7:48 PM CDT [facility] TOTAL PROTEIN 7.0 6.3 - 8.2 g/dL 04/05/2024 7:48 PM CDT [facility] ALBUMIN 4.4 3.5 - 5.0 g/dL 04/05/2024 7:48 PM CDT [facility] A/G RATIO 1.7 1.0 - 2.2 04/05/2024 7:48 PM CDT [facility] CALCIUM 9.3 8.7 - 10.5 mg/dL 04/05/2024 7:48 PM CDT [facility] T BILI 0.5 0.2 - 1.2 mg/dL 04/05/2024 7:48 PM CDT [facility] SGOT (AST) 16 5 - 34 U/L 04/05/2024 7:48 PM CDT [facility] SGPT (ALT) 11 0 - 55 U/L 04/05/2024 7:48 PM CDT [facility] ALKALINE PHOSPHATASE 84 40 - 150 U/L 04/05/2024 7:48 PM CDT [facility] GFR, ESTIMATED 40(L) >=60 04/05/2024 7:48 PM CDT [facility] Comment: Creatinine Clearance is the preferred criteria for selecting drug dose adjustments in renally impaired patients. The GFR is provided as additional pertinent clinical information. GFR is reported in mL/min/1.73 sq m. Calculation based on the Chronic Kidney Disease Epidemiology Collaboration (CKD- EPI) equation refit without adjustment for race. GFR, EST. 47(L) >=60 024 7:48 PM CDT [facility] GFR, EST. NONAFRICAN 39(L) >=60 04/05/2024 7:48 PM CDT [facility] Blood Venipuncture / Unknown 04/05/2024 7:17 PM CDT 04/05/2024 7:25 PM CDT Harpreet Colbert MD CHEMISTRY ORDERABLES Salud l Result [facility] [address] [place] [address] * HEMOGLOBIN A1C W/ ESTIMATED GLUCOSE (09/12/2023 11:44 AM HEAT TREATING BLUER) HGB-A1C 5.6 4.0 - 6.0 % 09/12/2023 3:29 PM HEAT TREATING BLUER [facility] Est Average Glucose 114.0 mg/dL 09/12/2023 3:29 PM HEAT TREATING BLUER [facility] Blood Venipuncture / Unknown 09/12/2023 11:44 AM HEAT TREATING BLUER 09/12/2023 11:44 AM HEAT TREATING BLUER Narrative [facility] - 09/12/2023 3:29 PM HEAT TREATING BLUER HEMOGLOBIN A1C: DIABETIC PATIENTS: WELL-CONTROLLED: 6.2 - 7.0 INTERMEDIATE WELL-CONTROLLED: 7.0 - 9.0 POORLY-CONTROLLED: >9.0 us Alo Carrasquillo MD CHEMISTRY ORDERABLES Salud l Result [facility] [address] [place] [address] * HEPATITIS C ANTIBODY (09/12/2023 11:44 AM HEAT TREATING BLUER) hepatitis C antibody 0.09 <1 S/CO [facility] ARCH [id number] B 09/12/2023 11:26 PM HEAT TREATING BLUER [facility] Comment: Signal/Cutoff ratio < 0.79 is Nondetected Signal/Cutoff ratio 0.80-0.99 is Grayzone Signal/Cutoff ratio > 0.99 is Detected Supplemental assays are recommended if signal/cutoff ratio is >/=1.00. Signal/cutoff ratio result >/= 5.00 is 97% predictive of positivity for recombinant immunoblot assay (RIBA) and will be reported to the [place] Department of Public Health as required. Blood Venipuncture / Unknown 09/12/2023 11:44 AM HEAT TREATING BLUER 09/12/2023 11:44 AM HEAT TREATING BLUER us Alo Carrasquillo MD CHEMISTRY ORDERABLES Salud l Result [facility] [address] [place] [address], from Last 3 Months or Most Recently Relevant to Health Maintenance Insurance MEDICARE [facility] Care Teams Coat Agent Relationship Specialty Start Date End Date Nitesh Jules MD [address] [place] [address] PCP - General Internal Medicine 11/02/24 Jama Tinajero MD [address] [place] [address] Consulting Physician Neurology 11/28/20 Ermias Greene MD [address] [address] Consulting Physician Otolaryngology 03/08/23 August Gant MD [address] [place] [address] Consulting Physician Nephrology 04/12/24
--- OUTSIDE RECORDS SUMMARY | 2025-03-28 14:25 | XMS_ITS | Encounter Summary ---
Author Organization [facility] Address [address] [place] [address] Phone Care Team Providers Care Refinery Pipeline Operator Name Role Phone Alo Carrasquillo MD Primary Care Provider [phone] Jama Tinajero MD Unavailable [phone] Ermias Greene MD Unavailable [phone] August Gant MD Unavailable [phone] Nitesh Jules MD Primary Care Provider Reason for Visit * Reason Comments Medication Refill Encounter Details Date Type Department Care Team (Late st Contact Info) Description 01/21/2024 Refill [facility] - Primary Care - Anay [address] [place] [address] Alo Carrasquillo MD [address] [place], [place] [phone] Medication Refill Social History Tobacco Use Types Packs/Day Years Used Date Smoking Tobacco: Former Cigarettes 2 20 Smokeless Tobacco: Never Alcohol Use Standard Drinks/Week Comments Yes 0 (1 standard drink = 0.6 oz pur e alcohol) 2 drinks per week [facility] Utilities Answer Date Recorded In the past 12 months has [employer], gas, oil, or water [employer] threatened to shut off services in your [...] often do you attend chur ch or mu-ism services? Never 09/11/2023 Do you belong to any clubs o r organizations such as sikh groups, unions, fraternal or athletic groups, or [...] Total Score - Questions 1-9 0 08/[address] [facility] - Occupational Stress Questionnaire Answer Date [...] place to sleep or slept in a [place] facility (including now)? Yes 09/11/2023 Education Answer Date [...] Description 03/29/2025 1:30 PM CDT Clinical Support [facility] Oncology Services [address] [place] [phone] Esdras Davila MD [address] [place] [address] Jama Tinajero MD [address] [place] [address] Discharge Disposition: Discharged to home or Selfcare 04/01/2025 1:00 PM CDT Office Visit [facility] [address] [place] [address] Jama Tinajero MD [address] [place] [address] 04/12/2025 1:30 PM CDT Clinical Support [facility] Oncology Services [address] [place] [phone] Discharge Disposition: Discharged to home or Selfcare 04/26/2025 1:30 PM CDT Clinical Support [facility] Oncology Services [address] [place] [phone] Discharge Disposition: Discharged to home or Selfcare 05/10/2025 1:00 PM CDT Clinical Support [facility] Oncology Services [address] [place] [phone] Discharge Disposition: Discharged to home or Selfcare documented as of this encounter Visit Diagnoses Diagnosis Mild cognitive impairment Mild cognitive impairment, so stated documented in this encounter Additional Health Concerns Assessment Noted Time PHQ-9 Depression Total Score: 0 09/12/19 24 11:18 AM CARAMEL CUTTER HELPER documented as of this encounter Care Teams Refinery Pipeline Operator Relationship Specialty Start Date End Date Alo Carrasquillo MD [address] [place] [address] PCP - General Internal Medicine 05/20/15 10/30/24 Nitesh Jules MD [address] [place] [address] PCP - General Internal Medicine 11/02/24 Jama Tinajero MD [address] [place] [address] Consulting Physician Neurology 11/28/20 Ermias Greene MD [address] [facility] [address] [place] [address] Consulting Physician Otolaryngology 03/08/23 August Gant MD 2 [facility], [address] [address] Consulting Physician Nephrology 04/12/24 documented as of this encounter
--- OUTSIDE RECORDS SUMMARY | 2025-03-28 14:25 | XMS_ITS | Encounter Summary ---
Author Organization [facility] Address [address] [place] [address] Phone Care Team Providers Care Cooking Chef Name Role Phone Alo Carrasquillo MD Primary Care Provider [phone] Jama Tinajero MD Unavailable [phone] Ermias Greene MD Unavailable [phone] August Gant MD Unavailable [phone] Nitesh Jules MD Primary Care Provider [phone] Reason for Visit * Reason Comments Medication Refill Encounter Details Date Type Department Care Team (Late st Contact Info) Description 03/08/2023 Refill [facility] - Neurology [facility] [address] [place] [address] Jama Tinajero MD [address] [place] [phone] Medication Refill Social History Tobacco Use Types [...] Dept 01/12/23 Office Visit Alo Carrasquillo MD [facility] 11/30/22 Office Visit Jama Tinajero MD [facility] Neurology [facility] Showing recent visits within past 182 days and meeting all other requirements Today's Visits Date Type Provider Dept 03/08/23 Appointment Alo Carrasquillo MD [facility] Showing today's visits and meeting all other requirements Future Appointments Date Type Provider Dept 06/02/23 Appointment Jama Tinajero MD [facility] Neurology [facility] Showing future appointments within next 90 days and meeting all other requirements Passed - Has an encounter in the past 6 months with a depression, anxiety, adjustment disorder, OCD, or PTSD visit diagnosis documented in this encounter Plan of Treatment Upcoming Encounters Date Type Department Care Team (Late st Contact Info) Description 03/29/2025 1:30 PM CDT Clinical Support [facility] Oncology Services [address] [place] [phone] Esdras Davila MD [address] [place] [address] Jama Tinajero MD [address] [place] [address] Discharge Disposition: Discharged to home or Selfcare 04/01/2025 1:00 PM CDT Office Visit [facility] [address] [place] [address] Jama Tinajero MD [address] [place] [address] 04/12/2025 1:30 PM CDT Clinical Support [facility] Oncology Services [address] [place] [phone] Discharge Disposition: Discharged to home or Selfcare 04/26/2025 1:30 PM CDT Clinical Support [facility] Oncology Services [address] [place] [phone] Discharge Disposition: Discharged to home or Selfcare 05/10/2025 1:00 PM CDT Clinical Support [facility] Oncology Services [address] [place] [phone] Discharge Disposition: Discharged to home or Selfcare documented as of this encounter Visit Diagnoses Not on filedocumented in this encounter Additional Health Concerns Assessment Noted Time PHQ-9 Depression Total Score: 0 01/13/20 23 2:00 PM CDT documented as of this encounter Care Teams Cooking Chef Relationship Specialty Start Date End Date Alo Carrasquillo MD [address] [place] [address] PCP - General Internal Medicine 05/20/15 10/30/24 Nitesh Jules MD [address] [place] [address] PCP - General Internal Medicine 11/02/24 Jama Tinajero MD [address] [place] [address] Consulting Physician Neurology 11/28/20 Ermias Greene MD [address] [facility] [address] [place] [address] Consulting Physician Otolaryngology 03/08/23 August Gant MD [address] [address] Consulting Physician Nephrology 04/12/24 documented as of this encounter
--- OUTSIDE RECORDS SUMMARY | 2025-03-28 14:25 | XMS_ITS | Clinical Summary ---
Author Organization [facility] Address [address] [place] [address] Care Team Providers Care Watch Leader Name Role Phone Nitesh Jules MD Primary Care Provider [phone] Allergies No known active allergies Medications Umeclidinium-Zulema [...] Department Care Team Description 03/04/2025 Orders Only [facility], [address] [address] [place] Essential hypertension (Primary Dx) from [...] Comments Blood Pressure 132/70 10/29/2024 1:38 PM CASEWORKER INTAKE Pulse 63 10/29/2024 1:38 PM CASEWORKER INTAKE Temperature 36.7 C (98 F) 10/29/2024 1:38 PM CASEWORKER INTAKE Respiratory Rate 16 10/29/2024 1:38 PM CASEWORKER INTAKE Oxygen Saturation 98% 10/29/2024 1:38 PM CASEWORKER INTAKE Inhaled Oxygen Concentration - - Weight 103 kg (226 lb) 10/29/2024 1:38 PM CASEWORKER INTAKE Height 188 cm (6' 2) 04/23/2024 2:01 PM CDT Body Mass Index 29.02 04/23/2024 2:01 PM CDT Plan of Treatment Upcoming Encounters Date Type Department Care Team (Late st Contact Info) Description 05/01/2025 1:15 PM CDT Office Visit [facility], [facility] [address] [place] [address] August Gant MD [address] [facility] [address] [place] [address] Health Maintenance Due Date Last [...] Recently Relevant to Health Maintenance Insurance Medicare [facility] Care Teams Watch Leader Relationship Specialty Start Date End Date Nites[place] [address] [place] [address] PCP - General Family Medicine 10/29/24
--- OUTSIDE RECORDS SUMMARY | 2025-03-28 14:25 | XMS_ITS | Encounter Summary ---
Author Organization [facility] Address [address] [place] [address] Phone Care Team Providers Care Lymphedema Therapist Name Role Phone Alo Carrasquillo MD Primary Care Provider [phone] Jama Tinajero MD Unavailable [phone] Ermias Greene MD Unavailable [phone] August Gant MD Unavailable [phone] Nitesh Jules MD Primary Care Provider [phone] Reason for Visit * Reason Comments Medication Refill Encounter Details Date Type Department Care Team (Late st Contact Info) Description 07/06/2024 Refill [facility] - Primary Care - Anay [address] [place] [address] Alo Carrasquillo MD [address] [place], [place] [id number] Medication Refill Social History Tobacco Use Types Packs/Day Years Used Date Smoking Tobacco: Former Cigarettes 2 43 0 1958 - 1977 Smokeless Tobacco: Never Alcohol Use Standard Drinks/Week Comments Not Currently 2 (1 standard drink = 0.6 oz pur e alcohol) 2 drinks per week [facility] Utilities Answer Date Recorded In the past 12 months has th e electric, gas, oil, or water [employer] threatened to shut off services in your home? No 04/12/2024 Social Connection and Isolation Panel Answer Date Recorded In a typical week, how many times do you talk on the phone with family, friends, or neighbors? Patient declined 04/12/2024 How often do you get togethe r with friends or relatives? Patient declined 04/12/2024 How often do you attend scientologist or restoration serv ices? Patient declined 04/12/2024 Do you belong to any clubs o r organizations such as scientologist groups, unions, fraternal or athletic groups, or [...] Total Score - Questions 1-9 0 08/29 [facility] - [...] in a fdc (including now)? Yes 09/11/2023 Housing Stability Vital Sign Answer Jose e Recorded In the last 12 months, was t here a time when you were not able to pay the mortgage or rent on time? No 04/12/2024 Number of Times Moved in the Last Year Not on fi le 04/12/2024 At any time in the past 12 m [facility], were you homeless or living in a fdc (including now)? No 04/12/2024 Education Answer Date [...] will call back and schedule an appointment. BUS DRIVER * Telephone Encounter - Kalyn Ashby RN - 07/06/2024 10:18 AM TOUR BUS DRIVER Routing to [facility] to contact patient. BUS DRIVER * Telephone Encounter - Aol Carrasquillo MD - 07/06/2024 10:12 AM TOUR BUS DRIVER This medication is not due for refill until August 24. Also, the patient is due for follow-up fasting office visit in July but it does not appear that he has 1 scheduled. BUS DRIVER * Telephone Encounter - Rodolfo Milligan RN [...] Dept 04/12/24 Office Visit Alo Carrasquillo MD [facility] 02/13/24 Office Visit Beckie Morrison, FITNESS SALES CONSULTANT, VICE PRESIDENT OF SALES [facility] 09/12/23 Office Visit Alo Carrasquillo MD [facility] Showing recent visits within past 365 days and meeting all other requirements Future Appointments No visits were found meeting these conditions. Showing future appointments within next 90 days and meeting all other requirements BUS DRIVER documented in this encounter Plan of Treatment Upcoming Encounters Date Type Department Care Team (Late st Contact Info) Description 03/29/2025 1:30 PM CDT Clinical Support [facility] Oncology Services [address] [place] [address] Esdras Davila MD [address] [place] [address] Jama Tinajero MD [address] [place] [address] Discharge Disposition: Discharged to home or Selfcare 04/01/2025 1:00 PM CDT Office Visit [facility] [address] [place] [address] Jama Tinajero MD [address] [place] [address] 04/12/2025 1:30 PM CDT Clinical Support [facility] Oncology Services [address] [place] [address] Discharge Disposition: Discharged to home or Selfcare 04/26/2025 1:30 PM CDT Clinical Support [facility] Oncology Services [address] [place] [phone] Discharge Disposition: Discharged to home or Selfcare 05/10/2025 1:00 PM CDT Clinical Support [facility] Oncology Services [address] [place] [phone] Discharge Disposition: Discharged to home or Selfcare documented as of this encounter Visit Diagnoses Diagnosis Panlobular emphysema (HCC) Other emphysema documented in this encounter Additional Health Concerns Assessment Noted Time PHQ-9 Depression Total Score: 0 09/12/19 24 11:18 AM TOUR BUS DRIVER documented as of this encounter Care Teams Lymphedema Therapist Relationship Specialty Start Date End Date Alo Carrasquillo MD [address] [place] [address] PCP - General Internal Medicine 05/20/15 10/30/24 Nitesh Jules MD [address] [place] [address] PCP - General Internal Medicine 11/02/24 Jama Tinajero MD [address] [place] [id number] Consulting Physician Neurology 11/28/20 Ermias Greene MD [address] [address] Consulting Physician Otolaryngology 03/08/23 August Gant MD [address] [address] Consulting Physician Nephrology 04/12/24 documented as of this encounter
--- OUTSIDE RECORDS SUMMARY | 2025-03-28 14:25 | XMS_ITS | Clinical Summary ---
Author Organization [address] Address [address] [place] [address] Care Team Providers Care [employer] Driver Name Role Phone Nitesh Jules MD Primary Care Provider [phone] Allergies No known active allergies Medications sertraline [...] control Assessment & Plan (08/06/2024 2:26 PM YARN FINISHER): Stable, EGFR in the 40s with no [...] infusions Assessment & Plan (08/06/2024 2:27 PM YARN FINISHER): Patient reports poor memory, forgets trips and [...] delivery Assessment & Plan (08/06/2024 2:27 PM YARN FINISHER): Stable, well controlled; occasional episodes of shortness of breath, continue albuterol p.r.n.; if no improvement, may start controller Benign prostatic hyperplasia with nocturia 08/06 Assessment & Plan (11/20/2024 9:22 PM CDT): Nocturia x4; continue finasteride 5 mg daily, given fall risk, would avoid alpha antagonist Assessment & Plan (08/06/2024 2:27 PM YARN FINISHER): Stable, well controlled, nocturia times 2-3; no relief with tamsulosin alone Will transition to finasteride 5 mg daily At high risk for falls 08/06/2024 Assessment & Plan (11/20/2024 9:22 PM CDT): Stable, improving; improved blood pressure decreased dizziness Continue fludrocortisone 0.1 mg daily Assessment & Plan (08/06/2024 2:28 PM YARN FINISHER): Patient has dizziness as well as dyspnea; no prior relief with midodrine Will start fludrocortisone 0.05 mg daily Immunizations Immunization Administration Dates Next Due COVID-19 mRNA ([employer]) 0.3 m L (30 mcg) vaccine (12 [...] on file Legal Sex Male 2:52 AM YARN FINISHER Gender Identity Not on file Sexual Orientation Not on file Obstetrics History Last Filed Vital Signs Vital Sign Reading Time Taken Comments Blood Pressure 136/60 10/31/2024 3:13 PM YARN FINISHER Pulse 64 10/31/2024 3:13 PM YARN FINISHER Temperature 36.1 C (96.9 F) 10/31/2024 3:13 PM YARN FINISHER Respiratory Rate 18 10/31/2024 3:13 PM YARN FINISHER Oxygen Saturation 99% 10/31/2024 3:13 PM YARN FINISHER Inhaled Oxygen Concentration - - Weight 102.5 kg (226 lb) 10/31/2024 3:13 PM YARN FINISHER Height 188 cm (6' 2) 10/31/2024 3:13 PM YARN FINISHER Body Mass Index 29.02 10/31/2024 3:13 PM YARN FINISHER Plan of Treatment Health Maintenance Due Date [...] exists Hepatitis B Screening Completed 10/22/2024 Insurance [facility] MEDIC[facility] Care Teams [employer] Driver Relationship Specialty Start Date End Date Nitesh Jules MD [address] [place] [address] PCP - General Family Medicine 07/23/24
--- OUTSIDE RECORDS SUMMARY | 2025-03-28 14:25 | XMS_ITS | Referral Summary ---
Author Organization [address] Address [address] [place] [address] Care Team Providers Care Academic Tutor Name Role Phone Nitesh Jules MD Primary Care Provider [phone] Allergies No known active allergies Medications sertraline [...] control Assessment & Plan (08/06/2024 2:26 PM FISH NET STRINGER): Stable, EGFR in the 40s with no [...] infusions Assessment & Plan (08/06/2024 2:27 PM FISH NET STRINGER): Patient reports poor memory, forgets trips and [...] delivery Assessment & Plan (08/06/2024 2:27 PM FISH NET STRINGER): Stable, well controlled; occasional episodes of shortness of breath, continue albuterol p.r.n.; if no improvement, may start controller Benign prostatic hyperplasia with nocturia 08/06 Assessment & Plan (11/20/2024 9:22 PM CDT): Nocturia x4; continue finasteride 5 mg daily, given fall risk, would avoid alpha antagonist Assessment & Plan (08/06/2024 2:27 PM FISH NET STRINGER): Stable, well controlled, nocturia times 2-3; no relief with tamsulosin alone Will transition to finasteride 5 mg daily At high risk for falls 08/06/2024 Assessment & Plan (11/20/2024 9:22 PM CDT): Stable, improving; improved blood pressure decreased dizziness Continue fludrocortisone 0.1 mg daily Assessment & Plan (08/06/2024 2:28 PM FISH NET STRINGER): Patient has dizziness as well as dyspnea; no prior relief with midodrine Will start fludrocortisone 0.05 mg daily Immunizations Immunization Administration Dates Next Due COVID-19 mRNA ([employer]) 0.3 m L (30 mcg) vaccine (12 [...] on file Legal Sex Male 2:52 AM FISH NET STRINGER Gender Identity Not on file Sexual Orientation Not on file Last Filed Vital Signs Vital Sign Reading Time Taken Comments Blood Pressure 136/60 10/31/2024 3:13 PM FISH NET STRINGER Pulse 64 10/31/2024 3:13 PM FISH NET STRINGER Temperature 36.1 C (96.9 F) 10/31/2024 3:13 PM FISH NET STRINGER Respiratory Rate 18 10/31/2024 3:13 PM FISH NET STRINGER Oxygen Saturation 99% 10/31/2024 3:13 PM FISH NET STRINGER Inhaled Oxygen Concentration - - Weight 102.5 kg (226 lb) 10/31/2024 3:13 PM FISH NET STRINGER Height 188 cm (6' 2) 10/31/2024 3:13 PM FISH NET STRINGER Body Mass Index 29.02 10/31/2024 3:13 PM FISH NET STRINGER Plan of Treatment Not on file Insurance [facility] MEDICARE Care Teams Academic Tutor Relationship Specialty Start Date End Date [place]ites[place] [address] PCP - General Family Medicine 07/23/24
--- OUTSIDE RECORDS SUMMARY | 2025-03-28 14:25 | XMS_ITS | Encounter Summary ---
Author Organization [facility] Address [address] [place] [address] Phone Care Team Providers Care Materials Manager Name Role Phone Alo Carrasquillo MD Primary Care Provider [phone] Jama Tinajero MD Unavailable [phone] Ermias Greene MD Unavailable [phone] August Gant MD Unavailable [phone] Nitesh Jules MD Primary Care Provider [phone] Reason for Visit * Reason Comments Medication Refill Encounter Details Date Type Department Care Team (Late st Contact Info) Description 05/17/2021 Refill [facility] - Primary Care - Anay [address] [place] [address] Alo Carrasquillo MD [address] [place], [place] [phone] Medication Refill Social History Tobacco Use Types [...] Description 03/29/2025 1:30 PM CDT Clinical Support [facility] Oncology Services [address] [place] [address] Esdras Davila MD [address] [place] [address] Jama Tinajero MD [address] [place] [address] Discharge Disposition: Discharged to home or Selfcare 04/01/2025 1:00 PM CDT Office Visit [facility] [address] [place] [address] Jama Tinajero MD [address] [place] [address] 04/12/2025 1:30 PM CDT Clinical Support [facility] Oncology Services [address] [place] [address] Discharge Disposition: Discharged to home or Selfcare 04/26/2025 1:30 PM CDT Clinical Support [facility] Oncology Services [address] [place] [phone] Discharge Disposition: Discharged to home or Selfcare 05/10/2025 1:00 PM CDT Clinical Support [facility] Oncology Services [address] [place] [phone] Discharge Disposition: Discharged to home or Selfcare documented as of this encounter Visit Diagnoses Diagnosis Mild cognitive impairment Mild cognitive impairment, so stated documented in this encounter Additional Health Concerns Assessment Noted Time PHQ-9 Depression Total Score: 0 04/01/20 21 1:00 PM CDT documented as of this encounter Care Teams Materials Manager Relationship Specialty Start Date End Date Alo Carrasquillo MD [address] [place] [address] PCP - General Internal Medicine 05/20/15 10/30/24 Nitesh Jules MD [address] [place] [address] PCP - General Internal Medicine 11/02/24 Jama Tinajero MD [address] [place] [address] Consulting Physician Neurology 11/28/20 Ermias Greene MD [address] [address] Consulting Physician Otolaryngology 03/08/23 August Gant MD [address] [place] [address] Consulting Physician Nephrology 04/12/24 documented as of this encounter
--- OUTSIDE RECORDS SUMMARY | 2025-03-28 14:25 | XMS_ITS | Encounter Summary ---
Author Organization [facility] Address [address] [place] [address] Care Team Providers Care Nightman Name Role Phone Unavailable Primary Care Provider Unavailabl e Encounter Details Date Type Department Care Team (Late st Contact Info) Description 10/29/2021 Lab Requisition [facility] DermPath Lab [address] [place] [address] Zia Mortensen MD [address] [place] [address] Social History Tobacco Use Types Packs/Day Years [...] Comments DERMATOPATHOLOGY Routine 10/28/2021 12:0 0 AM MARKER MACHINE documented in this encounter Results * DERMATOPATHOLOGY (10/28/2021 12:00 AM MARKER MACHINE) Case Report Dermatopathology Report Case: [id number] Authorizing Provider: Zia Mortensen MD Collected: 10/28/2021 12:00 AM Ordering Location: [facility] DermPath Lab Received: 10/29/2021 12:33 PM Pathologist: Luz Rodriguez MD Specimen: Skin, left side nose 5:34 PM MARKER MACHINE DERMATOPATHOLOGY LABORATORY Final Diagnosis Specimen A. 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 2 5:34 PM [facility] DERMATOPATHOLOGY LABORATORY Gross Description Specimen A: Received is one formalin filled container labeled with the patient's name and designated left side nose. The specimen consists of a shave biopsy measuring 2w8w5gs & 0p5q0se. Jar 0. 2 5:34 PM [facility] DERMATOPATHOLOGY LABORATORY Microscopic Description Specimen A. SKIN, left side nose: Within the dermis there are nodular aggregates of basaloid cells associated with fibromyxoid stroma and epithelial-stromal clefts. At the advancing margin of the neoplasm, there are smaller angulated nests that infiltrate the dermis. 2 5:34 PM [facility] DERMATOPATHOLOGY LABORATORY Disclaimer An external and internal positive and negative controls are appropriate for the histochemical, immunohistochemical and immunofluorescence stain(s) in this case (if any), except where stated explicitly. The performance characteristics of the stain(s) cited in this report were developed and its performance characteristic determined by the Dermatopathology Laboratory at [facility], directed by Dr. Dick Rodriguez. These tests need not be, and therefore are not, approved by the [place] Food and Drug Administration. The tests are used for clinical purposes. Billing Codes Specimen Charges Stain Charges 11871 1 2 5:34 PM [facility] DERMATOPATHOLOGY LABORATORY Embedded Images 2 5:34 PM [facility] DERMATOPATHOLOGY LABORATORY Pathology/Cytolog y TISSUE SPECIMEN FROM SKIN / Unknown 10/28/2021 10/29/2021 12:33 PM MARKER MACHINE us Zia Mortensen MD LAB - PATHOLOGY/CYTOLOGY ORD ERABLES Final Result DERMATOPATHOLOGY LABORATORY [facility] - Department of Dermatology [address] [place] [address], [facility] [phone] documented in this encounter Visit Diagnoses Not on filedocumented in this encounter
--- OUTSIDE RECORDS SUMMARY | 2025-03-28 14:25 | XMS_ITS | Clinical Summary ---
Author Organization [facility] Address [address] [place] [address] Care Team Providers Care Pipe Fittings Molder Name Role Phone Unavailable Primary Care Provider Unavailabl e Source Comments [facility],non-owned Affiliates and Associated Physician Practices is amultiple site organization consisting of ambulatory clinics and hospital sitesin [place], [place], [place] and [place]. This disclosure is being madepursuant to the Care Everywhere program and may not contain all information available regarding this patient. Last updated 18.[facility] Allergies No known active allergies Medications * Be aware that medications may not be up to date on this document. Alwaysverify current medications with the patient. LOVASTATIN PO Active fluticasone propionate (FLONASE) 50 MCG/ACT nasal spray [place] 2 Sprays into each nostril once daily [...] patient's age to complete this topic Insurance [place], [place] [id number] MEDICARE [facility] MEDICARE [facility] MEDICARE
--- OUTSIDE RECORDS SUMMARY | 2025-03-28 14:25 | XMS_ITS | Encounter Summary ---
Author Organization [facility] Address [address] [place] [address] Phone Care Team Providers Care Roundhouse Supervisor Name Role Phone Alo Carrasquillo MD Primary Care Provider [phone] Jama Tinajero MD Unavailable [phone] Ermias Greene MD Unavailable [phone] August Gant MD Unavailable [phone] Nitesh Jules MD Primary Care Provider [phone] Reason for Visit * Reason Comments Medication Refill Encounter Details Date Type Department Care Team (Late st Contact Info) Description 03/10/2023 Refill [facility] - Neurology [facility] [address] [place] [address] Jama Tinajero MD [address] [place] [address] Medication Refill Social History Tobacco Use Types [...] Dept 03/08/23 Office Visit Alo Carrasquillo MD [facility] 01/12/23 Office Visit Alo Carrasquillo MD [facility] 11/30/22 Office Visit Jama Tinajero MD [facility] 06/28/22 Office Visit Alo Carrasquillo MD [facility] 06/21/22 Office Visit Jama Tinajero MD [facility] Héctorron [facility] Showing recent visits within past 365 days and meeting all other requirements Future Appointments Date Type Provider Dept 06/02/23 Appointment Jama Tinajero MD [facility] H[facility]ctor Loera Showing future appointments within next 90 days and meeting all other requirements documented in this encounter Plan of Treatment Upcoming Encounters Date Type Department Care Team (Late st Contact Info) Description 03/29/2025 1:30 PM CDT Clinical Support [facility] Oncology Services [address] [place] [phone] Esdras Davila MD [address] [place] [address] Jama Tinajero MD [address] [place] [address] Discharge Disposition: Discharged to home or Selfcare 04/01/2025 1:00 PM CDT Office Visit [facility] #[address] [place] [address] Jama Tinajero MD [address] [place] [address] 04/12/2025 1:30 PM CDT Clinical Support [facility] Oncology Services [address] [place] [phone] Discharge Disposition: Discharged to home or Selfcare 04/26/2025 1:30 PM CDT Clinical Support [facility] Oncology Services [address] [place] [phone] Discharge Disposition: Discharged to home or Selfcare 05/10/2025 1:00 PM CDT Clinical Support [facility] Oncology Services [address] [place] [phone] Discharge Disposition: Discharged to home or Selfcare documented as of this encounter Visit Diagnoses Diagnosis Mild cognitive impairment Mild cognitive impairment, so stated documented in this encounter Additional Health Concerns Assessment Noted Time PHQ-9 Depression Total Score: 0 01/13/20 2:00 PM CDT documented as of this encounter Care Teams Roundhouse Supervisor Relationship Specialty Start Date End Date Neida, Alo M, MD [address] [place] [address] PCP - General Internal Medicine 05/20/15 10/30/24 Nitesh Jules MD [address] [place] [address] PCP - General Internal Medicine 11/02/24 Jama Tinajero MD [address] [place] [address] Consulting Physician Neurology 11/28/20 Ermias Greene MD [address] [address] Consulting Physician Otolaryngology 03/08/23 August Gant MD [address] [address] Consulting Physician Nephrology 04/12/24 documented as of this encounter
--- OUTSIDE RECORDS SUMMARY | 2025-03-28 14:25 | XMS_ITS | Encounter Summary ---
Author Organization [facility] Address [address] [place] [address] Phone Care Team Providers Care Hotel Engineer Name Role Phone Alo Carrasquillo MD Primary Care Provider [phone] Jama Tinajero MD Unavailable [phone] Ermias Greene MD Unavailable [phone] August Gant MD Unavailable [phone] Nitesh Jules MD Primary Care Provider [phone] Reason for Visit * Reason Comments Medication Refill Encounter Details Date Type Department Care Team (Late st Contact Info) Description 06/03/2023 Refill [facility] - Neurology [facility] [address] [place] [address] Jama Tinajero MD [address] [place] [phone] Medication Refill Social History Tobacco Use Types [...] Dept 06/02/23 Office Visit Jama Tinajero MD [facility] Neurology [facility] 03/08/23 Office Visit Alo Carrasquillo MD [facility] 01/12/23 Office Visit Alo Carrasquillo MD [facility] Showing recent visits within past [...] Description 03/29/2025 1:30 PM CDT Clinical Support [facility] Oncology Services [address] [place] [address] Esdras Davila MD [address] [place] [address] Jama Tinajero MD [address] [place] [address] Discharge Disposition: Discharged to home or Selfcare 04/01/2025 1:00 PM CDT Office Visit [facility] [address] [place] [address] Jama Tinajero MD [address] [place] [address] 04/12/2025 1:30 PM CDT Clinical Support [facility] Oncology Services [address] [place] [phone] Discharge Disposition: Discharged to home or Selfcare 04/26/2025 1:30 PM CDT Clinical Support [facility] Oncology Services [address] [place] [phone] Discharge Disposition: Discharged to home or Selfcare 05/10/2025 1:00 PM CDT Clinical Support [facility] Oncology Services [address] [place] [phone] Discharge Disposition: Discharged to home or Selfcare documented as of this encounter Visit Diagnoses Not on filedocumented in this encounter Additional Health Concerns Assessment Noted Time PHQ-9 Depression Total Score: 0 01/13/20 2:00 PM CDT documented as of this encounter Care Teams Hotel Engineer Relationship Specialty Start Date End Date Alo Carrasquillo MD [address] [place] [address] PCP - General Internal Medicine 05/20/15 10/30/24 Nitesh Jules MD [address] [place] [address] PCP - General Internal Medicine 11/02/24 Jama Tinajero MD [address] [place] [phone] Consulting Physician Neurology 11/28/20 Ermias Greene MD [address] [address] Consulting Physician Otolaryngology 03/08/23 August Gant MD [address] [address] Consulting Physician Nephrology 04/12/24 documented as of this encounter
--- OUTSIDE RECORDS SUMMARY | 2025-03-28 14:25 | XMS_ITS | Encounter Summary ---
Author Organization [facility] Address [address] [place] [address] Phone Care Team Providers Care Department Store Manager Name Role Phone Alo Carrasquillo MD Primary Care Provider [phone] Jama Tinajero MD Unavailable [phone] Ermias Greene MD Unavailable [phone] August Gant MD Unavailable [phone] Nitesh Jules MD Primary Care Provider [phone] Reason for Visit * Reason Comments Medication Refill Encounter Details Date Type Department Care Team (Late st Contact Info) Description 03/21/2022 Refill [facility] - Primary Care - [place] [address] [place] [address] Alo Carrasquillo MD [address] [place], [place] [phone] Medication Refill Social History Tobacco Use Types [...] Dept 12/18/21 Office Visit Alo Carrasquillo MD [facility] 06/19/21 Office Visit Alo Carrasquillo MD [facility] 04/01/21 Office Visit Erlin Sesay PAC [facility] Showing recent visits within past 365 days and meeting all other requirements Future Appointments No visits were found meeting these conditions. Showing future appointments within next 90 days and meeting all other requirements documented in this encounter Plan of Treatment Upcoming Encounters Date Type Department Care Team (Late st Contact Info) Description 03/29/2025 1:30 PM CDT Clinical Support [facility] Oncology Services [address] [place] [phone] Esdras Davila MD [address] [place] [address] Jama Tinajero MD [address] [place] [address] Discharge Disposition: Discharged to home or Selfcare 04/01/2025 1:00 PM CDT Office Visit [facility] [place] [facility] [address] [place] [address] Jama Tinajero MD [address] [place] [address] 04/12/2025 1:30 PM CDT Clinical Support [facility] Oncology Services [address] [place] [address] Discharge Disposition: Discharged to home or Selfcare 04/26/2025 1:30 PM CDT Clinical Support [facility] Oncology Services [address] [place] [phone] Discharge Disposition: Discharged to home or Selfcare 05/10/2025 1:00 PM CDT Clinical Support [facility] Oncology Services [address] [place] [phone] Discharge Disposition: Discharged to home or Selfcare documented as of this encounter Visit Diagnoses Diagnosis Mild cognitive impairment Mild cognitive impairment, so stated documented in this encounter Additional Health Concerns Assessment Noted Time PHQ-9 Depression Total Score: 0 04/01/20 1:00 PM CDT documented as of this encounter Care Teams Department Store Manager Relationship Specialty Start Date End Date Alo Carrasquillo MD [address] [place] [address] PCP - General Internal Medicine 05/20/15 10/30/24 Nitesh Jules MD [address] [place] [address] PCP - General Internal Medicine 11/02/24 Jama Tinajero MD [address] [place] [address] Consulting Physician Neurology 11/28/20 Ermias Greene MD [address] [address] Consulting Physician Otolaryngology 03/08/23 August Gant MD [address] [address] Consulting Physician Nephrology 04/12/24 documented as of this encounter
[2025-03-28 14:28] VITALS: BP 139/53; PULSE 66; RESP 20; TEMP 36.5; O2SAT 100
--- NOTE | 2025-03-28 15:02 | ED_ITS ---
HPI - Wound/Laceration General Chief Complaint: Wound/Laceration Stated Complaint: Stitches Removed/skin tear Time Seen by Provider: 03/28/25 14:45 Source: patient, family (), RN notes reviewed and old records reviewed Mode of arrival: ambulatory Limitations: no limitations History of Present Illness HPI narrative: Patient and present today for suture removal. On 03/17/2025, patient had 17 sutures placed to the right forearm after he fell at home. Patient and report no issues with the sutures. Patient also fell yesterday into a chain-link fence, after a spell of dizziness, resulting in a skin tear just above the suture site. dressed the area but did not replace the skin over the skin tear. states patient has frequent dizzy spells upon standing, physician aware. Related Data Home Medications ?Medication ?Instructions ?Recorded ?Confirmed ?Last Taken ?Type donepezil 10 mg tablet 10 mg PO QHS 02/07/23 03/07/23 Unknown History lovastatin 20 mg tablet 20 mg PO DAILY 02/07/23 03/07/23 Unknown History albuterol sulfate 90 mcg/actuation inhalation 03/17/25 Unknown History aerosol inhaler finasteride 5 mg tablet mg 03/17/25 Unknown History fludrocortisone 0.1 mg tablet mg 03/17/25 Unknown History memantine 10 mg tablet mg 03/17/25 Unknown History sertraline 50 mg tablet mg 03/17/25 Unknown History azelastine 137 mcg (0.1 %) nasal intranasal 03/28/25 Unknown History spray Allergies Allergy/AdvReac Type Severity Reaction Status Date / Time No Known Allergies Allergy Verified 03/28/25 14:28 [facility] Past Medical History Medical History Sensorineural hearing loss of combined sites, bilateral Social History Social History Social History: Caffeine-coffee Smoking status: Never smoker Smoking end date: 08/29/77 Alcohol intake: current Alcohol use details: rarely Substance use: never Substance use type: does not use Lack of Transportation: No Lack of Food: Never True Current Housing: I Have Housing Concerned About Future Housing: No Difficulty Paying Gas/Electric Bills: No Difficulty Paying for Meds: No Currently Unemployed: No Education: Associate Degree Difficulty w/ Childcare or Family Care: No Living arrangements: with family Occupation/Education: retired Gender identity (if verbalized by the patient): Male Comments At time of signature, I have reviewed and agree with nursing past medical, surgical, social and family history unless otherwise noted. Please see nursing chart for further information. There is no relevant family history pertinent to the presenting complaint Exam Narrative: GENERAL: Well-appearing, well-nourished, and in no acute distress. HEAD: Normocephalic, atraumatic. EYES: EOMI. No redness or drainage. Conjunctivae normal. ENT: Mucous membranes pink and moist NECK: Normal AROM.. CHEST: No respiratory distress. EXTREMITIES: Right arm: Healing wound to the mid forearm with 17 intact sutures. No surrounding erythema, edema, drainage to suggest infection. Sutures removed without incident. Patient tolerated procedure well. Proximal to the laceration, approximately 3 x 3 cm superficial skin tear with darkened shriveled skin in the distal edge. Reddened base. No active bleeding. Patient has full range of motion of the arm without difficulty or discomfort SKIN: Warm, dry, no rash. Capillary refill normal. Normal skin turgor. NEURO: No focal deficits. Alert and oriented x3. Gait steady. PSYCH: Normal affect. No signs of depression or anxiety. Course Course Emergency Course: Shriveled skin of the skin tear could not be salvaged. It was removed with scissors. Wound cleansed and dressed. Level of Care: Express Care Visit Vital Signs Vital signs: Vital Signs Temperature 97.7 F 03/28/25 14:28 Pulse Rate 66 03/28/25 14:28 Respiratory Rate 03/28/25 14:28 Blood Pressure 139/53 L 03/28/25 14:28 Pulse Oximetry 100 03/28/25 14:28 Oxygen Delivery Room Air 03/28/25 14:28 Temperature 97.7 F 03/28/25 14:28 Pulse Rate 66 03/28/25 14:28 Respiratory Rate 03/28/25 14:28 Blood Pressure 139/53 L 03/28/25 14:28 Pulse Oximetry 100 03/28/25 14:28 Oxygen Delivery Room Air 03/28/25 14:28 Reviewed MDM - Wound/Laceration MDM Narrative Medical decision making narrative: 79-year-old male patient presents for suture removal and evaluation of a skin tear to the right arm. Sutures removed without incident or signs of infection. Patient fell into a chain link fence yesterday sustaining a superficial skin tear to the right forearm. Skin trimmed from the area. Cleansed and dressed. No body tenderness or decreased ROM. Recommend cleansing daily and dressing with Vaseline and nonadherent dressing. VSS. Differential Diagnosis Differential diagnosis: Likely laceration, abrasion, avulsion of skin and other (Skin tear) Critical Care Time Critical Care Time Critical Care Time: No Discharge Plan Discharge Clinical Impression: Visit for suture removal Skin tear of right forearm without complication Qualifiers: Encounter type: initial encounter Qualified Code(s): S51.811A - Laceration without foreign body of right forearm, initial encounter Patient Disposition: Home Condition: Stable Instructions: Skin Tear (ED) Additional Instructions: Your sutures have been removed today in your wound seems to be healing. The extra skin around her skin tear has been removed. Please wash daily with soap and water and apply Vaseline. Keep covered with a nonadherent dressing. Monitor for any signs of infection such as redness, swelling, increased pain, or pus drainage comments your doctor if you note any. Take Tylenol for pain if needed. Follow-up with your PCP with any concerns. Your blood pressure was elevated above 120/80 today at Urgent Care. This puts you above the threshold for follow up. Please schedule a followup visit with your personal physician as soon as possible, for further evaluation and treatment. Even blood pressure exceeding 120/80 may indicate pre-hypertension. Patient Language: Eritrean Prescriptions: No Action azelastine 137 mcg (0.1 %) spray,non-aerosol INTRANASAL albuterol sulfate 90 mcg/actuation HFA aerosol inhaler INHALATION sertraline 50 mg tablet memantine 10 mg tablet fludrocortisone 0.1 mg tablet finasteride 5 mg tablet donepezil 10 mg tablet 10 mg PO QHS lovastatin 20 mg tablet 20 mg PO DAILY Follow-up/Referrals: Jorge A,MD Nitesh [Primary Care Provider] - Time of Disposition: 15:02
== END 2025-03-28 15:08 | disposition home or self-care (01) ==
PROVIDERS: Emergency Provider Nurse Practitioner; PCP Hospitalist
DX: Z48.02 Encounter for removal of sutures (principal)
CPT/HCPCS: 99211; G0463